=== PATIENT | female | born 1965 | race Caucasian/White ===

== ENCOUNTER 2020-08-04 18:02 | Emergency (ER) | payer OTHER, SELFPAY ==
--- NOTE | ~2020-08-04 | XR_ITS ---
EXAMINATION: XR CHEST CLINICAL INFORMATION: Right-sided pain. COMPARISON: None TECHNIQUE: 2 views of the chest were obtained. FINDINGS: No significant abnormality is noted involving the heart, lungs, mediastinum, bony thorax or soft tissues. XR/XR chest 2V IMPRESSION: Unremarkable chest examination.
[2020-08-04 18:05] VITALS: BP 144/86; PULSE 81; RESP 18; TEMP 2.1; TEMP 35.7; O2SAT 97; BMI 46.5
--- NOTE | 2020-08-04 21:07 | ED.FEMALEGU ---
HPI - Female Genitourinary General Chief complaint: Urogenital-Female Stated complaint: low back pain Time Seen by Provider: 08/04/20 21:07 Source: patient Mode of arrival: ambulatory History of Present Illness HPI Narrative: 54-year-old female who presents with onset of right flank pain that started last night and has been associated with fever but no chills, nausea, vomiting, diarrhea and patient denies urinary pain/burning/frequency. Her surgical past is notable for unidentified ovarian surgery, and cholecystectomy. She states her temp was measured at 101. Related Data Previous Rx's Medication Instructions Recorded ciprofloxacin HCl [Cipro] 500 mg PO Q12H 7 Days #14 tab 08/04/20 Allergies Allergy/AdvReac Type Severity Reaction Status Date / Time No Known Allergies Allergy Unverified 11/29/19 16:18 [No Known Allergies*] Review of Systems Review of Systems: Pertinent positives and negatives as stated in HPI 10 point review of systems is otherwise negative. PMFSH Past Medical History Source: nursing notes reviewed Medical History Depression Social History Social History Advance Directives: No Advance Directives Information Provided: Yes Patient : No Physical Exam Vital Signs: Vital Signs: Last Vital Signs Temp 98.6 F 08/04/20 22:43 Pulse 79 08/04/20 22:43 Resp 20 08/04/20 22:43 BP 156/76 H 08/04/20 22:43 Pulse Ox 98 08/04/20 22:43 Body Mass Index 46.5 VITAL SIGNS: Reviewed. GENERAL: Well developed, well nourished, in no acute distress. HEAD: Normocephalic/atraumatic EYES: PERRLA, EOMI EARS: Ext canals without abnormality NOSE: Nares patent bilateral OROPHARYNX: no oral lesions noted, posterior pharynx clear NECK: Supple, no adenopathy LUNGS: Normal breath sounds. No adventitious sounds or accessory muscle use. SpO2<97> CARDIOVASCULAR: Regular rate and rhythm without noted murmurs ABDOMEN: Soft, mild tenderness to right side of the abdomen without rebound otherwise exam limited by body habitus, non-distended with bowel sounds, no CVA tenderness Course Course Course Narrative: 54-year-old female with history and clinical presentation suggestive of possible renal colic, pyelonephritis, UTI, less likely appendicitis. Low clinical suspicion for pneumonia. Review of all investigations consistent with likely pyelonephritis and patient will be treated with levofloxacin initially here in the ER and then discharged with remaining prescription and recommendations to follow-up with her primary care provider. Today patient is tolerating oral intake. MDM - Female Genitourinary Lab Data Result diagrams: 08/04/20 21:52 08/04/20 21:52 Labs: Lab Results 08/04/20 08/04/20 08/04/20 Range/Units 21:52 21:52 22:35 WBC 5.8 (4.8-10.8) X10*3/uL RBC 4.64 (4.20-5.50) X10*6/uL Hgb 13.2 (12.0-16.0) g/dl Hct 42.2 (37-47) % MCV 90.9 (80-98) fL MCH 28.4 (27.0-33.0) pg MCHC 31.3 (31.0-35.0) g/dl RDW 14.3 (11.0-16.0) % Plt Count 236 (160-400) X10*3/uL MPV 9.1 L (9.4-12.3) fL Immature Gran % (Auto) 0.2 (0.0-0.4) % Neut % (Auto) 62.2 (45-73) % Lymph % (Auto) 29.3 (20-40) % Wilson % (Auto) 5.2 (2-11) % Eos % (Auto) 2.4 (0-4) % Baso % (Auto) 0.7 (0-2) % Lymph # (Auto) 1.7 (1.2-4.9) X10*3/uL Wilson # (Auto) 0.3 (0.1-1.2) X10*3/uL Eos # (Auto) 0.1 (0.0-0.4) X10*3/uL Baso # (Auto) 0.0 (0.0-0.2) X10*3/uL Abs Immat Gran (auto) 0.01 (0.00-0.03) X10*3/uL Absolute Neuts (auto) 3.6 (2.0-8.3) X10*3/uL Absolute Nucleated RBC 0.000 (0.0-0.012) X10*3/uL Nucleated RBC % (auto) 0.0 (0.0-0.2) /100WBC Sodium 138 (135-145) mmol/L Potassium 3.6 (3.3-5.1) mmol/L Chloride 102 (96-108) mmol/L Carbon Dioxide 28 (22-29) mmol/L Anion Gap 12 (12-20) BUN 10 (9-16) mg/dL Creatinine 0.78 (0.5-1.4) mg/dL Estim Creat Clear Calc 110.6 Estimated GFR > 60 Random Glucose 98 (60-115) mg/dL Calcium 8.9 (8.4-10.2) mg/dL Urine Color YELLOW Urine Appearance CLOUDY Urine pH 6.0 (5.0-8.0) Ur Specific [place] 1.025 (1.005-1.025) Urine Protein NEG (NEG-TRACE) MG/DL Urine Glucose (UA) NEG (NEG) MG/DL Urine Ketones NEG (NEG) MG/DL Urine Blood 1+ H (NEG) Urine Nitrite POS H (NEG) Ur Leukocyte Esterase 1+ H (NEG) Urine RBC 0-2 (0) /HPF Urine WBC 15-29 H (0-4) /HPF Ur Squamous Epith Cells 3+ /LPF Urine Bacteria 3+ /LPF Urine Mucus 2+ /LPF Discharge Plan Discharge Clinical Impression: Pyelonephritis Patient Disposition: Home, Self-Care Instructions: Kidney Infection (ED) Additional Instructions: 1. Please resume all home medications as prescribed. 2. Please follow-up with your primary care provider in the next 2-3 days for re-evaluation. 3. Please remain well hydrated especially with water and take [id number] Tylenol/ibuprofen as needed for temperatures greater than 100.4. Return to the ER for any acute worsening of your symptoms. Prescriptions: New ciprofloxacin HCl [Cipro] 500 mg tablet 500 mg PO Q12H 7 Days Qty: 14 RF: 0 Referrals: Physician,None [Primary Care Provider] - 2 days
[2020-08-04 21:57] LABS: MANUAL DIFF FLAG NO
[2020-08-04 21:59] LABS: Basophils Percent Auto 0.7 % (0-2); Eosinophils Absolute Auto 0.1 X10*3/uL (0.0-0.4); Eosinophils Percent Auto 2.4 % (0-4); Hematocrit 42.2 % (37-47); Hemoglobin 13.2 g/dl (12.0-16.0); Imm Gran Abs Auto 0.01 X10*3/uL (0.00-0.03); Imm Gran Pct Auto 0.2 % (0.0-0.4); Lymphocytes Absolute Auto 1.7 X10*3/uL (1.2-4.9); Lymphocytes Percent Auto 29.3 % (20-40); Mean Corpuscular HGB Conc 31.3 g/dl (31.0-35.0); Mean Corpuscular Hemoglobin 28.4 pg (27.0-33.0); Mean Corpuscular Volume 90.9 fL (80-98); Mean Platelet Volume 9.1 fL (9.4-12.3); Monocytes Absolute Auto 0.3 X10*3/uL (0.1-1.2); Monocytes Percent Auto 5.2 % (2-11); Neutrophils Absolute Auto 3.6 X10*3/uL (2.0-8.3); Neutrophils Percent Auto 62.2 % (45-73); Platelet Count 236 X10*3/uL (160-400); Red Blood Count 4.64 X10*6/uL (4.20-5.50); Red Cell Distribution Width 14.3 % (11.0-16.0); White Blood Count 5.8 X10*3/uL (4.8-10.8)
[2020-08-04 22:28] LABS: Anion Gap 12 (12-20); Blood Urea Nitrogen 10 mg/dL (9-16); Calcium 8.9 mg/dL (8.4-10.2); Carbon Dioxide 28 mmol/L (22-29); Chloride 102 mmol/L (96-108); Creatinine Clr Calc Pharmacy 110.6; Estimated Glomerular Filt Rate > 60; Glucose Random 98 mg/dL (60-115); Potassium 3.6 mmol/L (3.3-5.1); Sodium 138 mmol/L (135-145)
--- NOTE | 2020-08-04 22:42 | PC.NURSE ---
Per Timmy WHALEY, pt to receive 975mg of acetaminophen
[2020-08-04 22:43] VITALS: BP 156/76; PULSE 79; RESP 20; TEMP 37; O2SAT 98
[2020-08-04] MEDS: Acetaminophen 325 MG TABLET PO (22:49)
[2020-08-04] MEDS: Acetaminophen 325 MG TABLET 650 MG PO (22:49)
[2020-08-04 22:59] LABS: Glucose Urine UA NEG (NEG); Leukocyte Esterase Urine 1+ (NEG); Nitrite Urine POS (NEG); Specific Gravity - Urine 1.025 (1.005-1.025); UACC Culture Trigger YES; Urine Blood 1+ (NEG); Urine Ketones NEG (NEG); Urine Protein NEG (NEG-TRACE)
[2020-08-04 23:00] LABS: Appearance Urine CLOUDY; Color Urine YELLOW
[2020-08-04 23:07] LABS: Bacteria Urine 3+ /LPF; Mucus Urine 2+ /LPF; RBC Urine 0-2 /HPF (0); Squamous Epithelial Cell Urine 3+ /LPF; UACC CULT YES
[2020-08-04] MEDS: levoFLOXacin 500 MG TABLET PO (23:44)
== END 2020-08-04 23:45 | disposition home or self-care (01) ==
PROVIDERS: Emergency Provider Student in an Organized Health Care Education/Training Program
DX: N12 Tubulo-interstitial nephritis, not specified as acute or chronic (principal); R50.9 Fever, unspecified
CPT/HCPCS: 36415; 71046; 80048; 81001; 85025; 87086; 87088; 87186; 99284

== ENCOUNTER 2021-04-22 11:23 | Emergency (ER) | payer OTHER, SELFPAY ==
--- NOTE | ~2021-04-22 | US_ITS ---
EXAMINATION: US VENOUS ULTRASOUND WITH DOPPLER LOWER EXTREMITY, LEFT CLINICAL INFORMATION: Posterior leg and popliteal pain. Rule out DVT. COMPARISON: None TECHNIQUE: Ultrasound of the deep veins is performed from the hip to the calf with compression sonography and color and pulse Doppler assessment. Spectral analysis with color-flow imaging is performed. FINDINGS: There is normal venous compression and respiratory variation and augmented flow. The visualized common femoral vein, superficial femoral vein, profunda femoral vein, popliteal vein, and the posterior tibial vein shows no evidence of deep venous thrombosis. Peroneal vein is not well visualized. There is no popliteal fossa cyst. US/US venous duplex LE LT IMPRESSION: No DVT demonstrated in the left lower extremity. The left peroneal vein is not well visualized. There is no Alcala's cyst.
[2021-04-22 11:28] VITALS: BP 156/92; PULSE 92; RESP 18; TEMP 36.6; O2SAT 97; BMI 39.9
--- NOTE | 2021-04-22 13:18 | ED.GENADULT ---
HPI - General Adult General Chief complaint: Extremity Injury, Lower Stated complaint: cyst Time Seen by Provider: 04/22/21 12:45 History of Present Illness HPI narrative: Patient complains of left leg pain that has gradually increased over the last 2 weeks, the pain is behind the knee and behind the thigh, she denies any redness any sores any wounds, she denies any injury she has no shortness of breath she denies any calf swelling or calf pain Related Data Previous Rx's Medication Instructions Recorded ciprofloxacin HCl 500 mg tablet 500 mg PO Q12H 7 Days #14 tab 08/04/20 (Cipro) ibuprofen 600 mg tablet 600 mg PO Q6H PRN #14 tab 04/22/21 oxycodone 5 mg tablet 5 mg PO Q6H PRN #14 tab 04/22/21 walker #1 ea 04/22/21 Allergies Allergy/AdvReac Type Severity Reaction Status Date / Time No Known Allergies Allergy Unverified 11/29/19 16:18 [No Known Allergies*] Review of Systems Review of Systems: Positive for left leg pain Negatives are no fever no chills no dizziness no weakness no fainting no feeling faint no headache no neck pain no back pain no radiating back pain no abdominal pain no numbness weakness or tingling no wounds no lacerations no calf pain or swelling Yes all other systems are reviewed and are negative PMFSH Past Medical History Source: nursing notes reviewed Medical History (Updated 04/22/21 @ 17:00 by KATE Gauthier) Depression Varicose vein of leg Social History Social History Advance Directives: No Advance Directives Information Provided: Yes Patient : No Physical Exam Vital Signs: Vital Signs: Last Vital Signs Temp 97.6 F 04/22/21 17:59 Pulse 77 04/22/21 17:59 Resp 16 04/22/21 17:59 BP 156/92 H 04/22/21 11:28 Pulse Ox 98 04/22/21 17:59 BMI result Body Mass Index 39.9 General appearance is no acute distress Head is normocephalic atraumatic Neck is supple Respiratory no distress Chest is clear to auscultation bilateral The back nontender The extremities is full range of motion x4 Left leg exam there is tenderness behind the knee and behind the distal thigh but there is no redness no warmth no swelling no wounds, there are multiple varicose superficial veins but none of them a red Pulses are 2+ and symmetrical dorsalis pedis on both sides, and both are neurovascular intact Neuro no focal motor or sensory deficits and gait and balance are normal Course Course Course Narrative: Left leg ultrasound to rule out DVT was negative Patient is advised to return in 5-7 days if pain persists says she has no primary doctor and she made a repeat ultrasound At this time there is no sign of infection or ischemia or DVT and she is discharged, ambulating easily Discharge Plan Discharge Clinical Impression: Leg pain Patient Disposition: Home, Self-Care Additional Instructions: Ultrasound of her leg was negative with no sign of clot, the physical exam there was no sign of infection, circulation was good Follow with orthopedist and primary care doctor If pain in the back of the leg continues or worsens you should return for a 2nd ultrasound after 5 days to confirm that the pain is not from a blood clot that is not seen on a for study Return any time any worse condition or any concerns Prescriptions: New oxycodone 5 mg tablet 5 mg PO Q6H PRN (Reason: pain) Qty: 14 0RF ibuprofen 600 mg tablet 600 mg PO Q6H PRN (Reason: pain) Qty: 14 0RF (DME) walker Misc See Rx Instructions .Route Qty: 1 0RF Rx Instructions: As directed No Action ciprofloxacin HCl [Cipro] 500 mg tablet 500 mg PO Q12H 7 Days Qty: 14 0RF Referrals: Shabbir Amaya MD [Physician] - 2 days (Left leg pain) Interventions: ED Discharge Assessment Last Done: 04/22/21 18:00 Discharge Date/Time: 04/22/21 18:02
[2021-04-22] MEDS: Acetaminophen 325 MG TABLET 650 MG PO (14:40)
[2021-04-22] MEDS: oxyCODONE HCl Immed Release 5 MG TABLET 10 MG PO (14:40)
[2021-04-22] MEDS: Ketorolac Tromethamine 30 MG/ML VIAL IM (17:24)
[2021-04-22] MEDS: oxyCODONE HCl Immed Release 5 MG TABLET PO (17:24)
[2021-04-22 17:59] VITALS: PULSE 77; RESP 16; TEMP 36.4; O2SAT 98
== END 2021-04-22 18:02 | disposition home or self-care (01) ==
PROVIDERS: Emergency Provider Emergency Medicine
DX: M79.662 Pain in left lower leg (principal)
CPT/HCPCS: 93971; 96372; 99284; J1885

== ENCOUNTER 2021-05-01 00:39 | Emergency (ER) | payer OTHER, SELFPAY ==
[2021-05-01 00:58] VITALS: BP 155/70; PULSE 88; RESP 15; TEMP 36.8; O2SAT 99; BMI 45.7
[2021-05-01 01:38] VITALS: BP 119/44; PULSE 86; RESP 16; TEMP 36.8; O2SAT 100
--- NOTE | 2021-05-01 03:08 | ED.GENADULT ---
HPI - General Adult General Chief complaint: Extremity Injury, Lower Stated complaint: leg pain + dental pain Time Seen by Provider: 05/01/21 01:32 Source: patient Mode of arrival: ambulatory History of Present Illness HPI narrative: 55-year-old female with history and clinical presentation of chronic venous varicosity and re-presented for complaints of left lower extremity pain that affects her ability to walk and now states that her right lower extremity is having similar symptoms. She denies any numbness, tingling in either lower extremity and denies any fevers, chills, shortness of breath, elevated temperature. Patient was seen here last week and had a DVT study that was negative. Related Data Previous Rx's Medication Instructions Recorded ciprofloxacin HCl 500 mg tablet 500 mg PO Q12H 7 Days #14 tab 08/04/20 (Cipro) ibuprofen 600 mg tablet 600 mg PO Q6H PRN #14 tab 04/22/21 oxycodone 5 mg tablet 5 mg PO Q6H PRN #14 tab 04/22/21 walker #1 ea 04/22/21 Allergies Allergy/AdvReac Type Severity Reaction Status Date / Time No Known Allergies Allergy Verified 05/01/21 01:03 [No Known Allergies*] Review of Systems Review of Systems: Pertinent positives and negatives as stated in HPI 10 point review of systems is otherwise negative. [facility] Past Medical History Source: nursing notes reviewed Medical History Depression Varicose vein of leg Social History Social History Advance Directives: No Patient : No Physical Exam ED Vital Signs: Vital Signs - 24 hr 05/01/21 00:58 05/01/21 01:38 Temperature 98.2 F 98.3 F Pulse Rate 88 86 Respiratory Rate 15 16 Blood Pressure 155/70 H 119/44 L Pulse Oximetry 99 100 BMI result Body Mass Index 45.7 VITAL SIGNS: Reviewed. GENERAL: Morbidly obese, in no acute distress. HEAD: Normocephalic/atraumatic EYES: PERRLA, EOMI OROPHARYNX: no oral lesions noted, posterior pharynx clear LUNGS: Normal breath sounds. No adventitious sounds or accessory muscle use. SpO2<99> CARDIOVASCULAR: Regular rate and rhythm without noted murmurs ABDOMEN: Soft, non-tender, non-distended with bowel sounds. MUSCULOSKELETAL: No tenderness, deformities, or effusions noted on gross inspection. EXTREMITIES: No cyanosis, clubbing or edema, significant chronic venous varicosity to bilateral lower extremities, no erythema/induration noted, warm feet, palpable pulses SKIN: Inspection of the skin reveals no rashes NEUROLOGIC: Alert and oriented x 4. Course Course Course Narrative: 55-year-old female with history and clinical presentation consistent with pain associated with bilateral lower extremity venous varicosity without overt evidence of thrombophlebitis and D-dimer is not detectable again demonstrating unlikely VTE. Patient states that because of her job she is unable to wear bilateral lower extremity compression socks, but was strongly encouraged to wear them at all other times to help reduce her pain. She did receive combination analgesics and on re-evaluation states she has had improvement of her pain. She does have an an infected tooth the patient states she has like go for a number of months now. Medical Decision Making Lab Data Labs: Lab Results 05/01/21 Range/Units 04:01 D-Dimer High Sensitivty < 150 NG/ML Discharge Plan Discharge Clinical Impression: Pain due to varicose veins of both lower extremities, Toothache Patient Disposition: Home, Self-Care Instructions: Toothache (ED), Venous Insufficiency (DC) Additional Instructions: 1. Follow-up with a dentist today to get your tooth taken care of. 2. Recommend using compression stockings, knee-high at all other times outside of work. 3. It is important that you establish care with a primary care provider and schedule an appointment for evaluation. Return to the ER for worsening symptoms. Prescriptions: No Action ciprofloxacin HCl [Cipro] 500 mg tablet 500 mg PO Q12H 7 Days Qty: 14 0RF oxycodone 5 mg tablet 5 mg PO Q6H PRN (Reason: pain) Qty: 14 0RF ibuprofen 600 mg tablet 600 mg PO Q6H PRN (Reason: pain) Qty: 14 0RF (DME) [place] Misc See Rx Instructions .Route Qty: 1 0RF Rx Instructions: As directed Stand Alone Forms: Work/School Release
[2021-05-01] MEDS: Acetaminophen 325 MG TABLET 975 MG PO (03:35)
[2021-05-01] MEDS: Ketorolac Tromethamine 15 MG/ML VIAL IM (03:35)
--- NOTE | 2021-05-01 03:39 | PC.NURSE ---
pt medicated as per emar.
[2021-05-01 04:18] LABS: D Dimer High Sensitivity < 150 NG/ML
== END 2021-05-01 04:56 | disposition home or self-care (01) ==
PROVIDERS: Emergency Provider Student in an Organized Health Care Education/Training Program
DX: I83.813 Varicose veins of bilateral lower extremities with pain (principal); K08.89 Other specified disorders of teeth and supporting structures
CPT/HCPCS: 36415; 85379; 96372; 99284; J1885

== ENCOUNTER 2021-12-23 18:21 | Emergency (ER) | payer OTHER, SELFPAY ==
--- NOTE | 2021-12-23 18:23 | ED_ITS ---
HPI - Wound/Laceration General Chief Complaint: Wound/Laceration Stated Complaint: laceration Time Seen by Provider: 12/23/21 18:23 Source: patient and EMS Mode of arrival: EMS Limitations: no limitations History of Present Illness HPI narrative: 56-year-old female presents via EMS for a heavily bleeding varicose vein. Patient scratched her leg left lower leg, noted severe heavy bleeding from a varicose vein site. The bleeding was so significant that blood was all over the bathroom griffin. When EMS arrived they applied a pressure dressing, which she bled through before leaving her home. Patient does not report any physical complaints at this time, and has a history of varicose bleeding. Onset (ago): hour(s) (Within the hour of arrival) Extremity Location: left: lower leg Place: home Patient tetanus UTD: Yes Context: accidental Associated symptoms: none Treatments prior to arrival: bandage Related Data Previous Rx's Medication Instructions Recorded ciprofloxacin HCl 500 mg tablet 500 mg PO Q12H 7 days #14 tabs 08/04/20 (Cipro) ibuprofen 600 mg tablet 600 mg PO Q6H PRN pain #14 tabs 04/22/21 oxycodone 5 mg tablet 5 mg PO Q6H PRN pain #14 tabs 04/22/21 walker #1 ea 04/22/21 Allergies Allergy/AdvReac Type Severity Reaction Status Date / Time No Known Allergies Allergy Verified 05/01/21 01:03 [No Known Allergies*] Review of Systems Review of Systems: Constitutional: No Fever, No Chills ENT/Mouth: No Ear Pain, No Hoarseness, No sore throat Eyes: No Eye Pain, No Swelling, No Redness, No Foreign Body Cardiovascular: No Chest Pain, No SOB Respiratory: No Cough, No Dyspnea Gastrointestinal: No Nausea, No Vomiting, No Diarrhea, No abdominal Pain Genitourinary: No Dysuria, No Hematuria Musculoskeletal: No joint pain, No Myalgias, No Joint Swelling Skin: No Skin lacerations, No rash Neuro: No Weakness, No Numbness, No Paresthesias, No Loss of Consciousness, No Dizziness, No Headache Psych: No Anxiety/Panic, No Depression Heme/Lymph: Varicose vein rupture, no easy bruising, no Lymphadenopathy Endocrine: No Polyuria, No Polydipsia Yes all other systems are reviewed and are negative [facility] Past Medical History Attestation statement: The following information was validated with the patient. Source: old records reviewed Medical History Depression Varicose vein of leg Physical Exam Vital Signs: Vital Signs: Last Vital Signs Temp 98.1 F 12/23/21 18:45 Pulse 90 12/23/21 18:45 Resp 16 12/23/21 18:45 BP 123/51 L 12/23/21 18:45 Pulse Ox 98 12/23/21 18:45 O2 Del Method 12/23/21 18:45 BMI result Body Mass Index 53.2 Appearance: Alert. Oriented X3. No acute distress. Eyes: Pupils equal, round and reactive to light. ENT: Pharynx normal. Neck: Normal inspection. Neck supple. CVS: Normal heart rate and rhythm. Pulses normal. Respiratory: No respiratory distress. Breath sounds normal. Abdomen: Soft and nontender. Skin: Skin warm and dry. Normal skin color. Normal skin turgor. Extremities: No lower extremity edema. Ruptured varicosity to the left medial aspect mid wiggins. Neuro: No motor deficit. No sensory deficit. Cranial nerves 2-12 Course Course Course Narrative: 56-year-old female presents via EMS for bleeding varicosity. EMS was unable to control the bleeding with pressure dressing, she has blood through 2 pressure dressings. Patient was immediately taken into the emergency department for vessel ligation. 4 mL of lidocaine 2% utilized for anesthetize a wiggins, 2 sutures above once again to below varicosity rupture site. Bleeding is well controlled. Patient tolerated procedure well. 19:05 re-evaluation 30 minute status post ligation, hemostasis technique successful. No further bleeding. Pressure dressing applied. Patient will return in 10-14 days to have sutures removed. She does that she must elevate extremity to reduce bleeding. Patient verbalized understanding of and agrees to plan of care discharge home. Replies understanding of signs and symptoms indicating need for emergent intervention. MDM - Wound/Laceration MDM Narrative Medical decision making narrative: Varicose vessel ligation Differential Diagnosis Differential diagnosis: Likely laceration Medical Records Attestation: I reviewed the patient's medical records. Procedures Laceration Laceration 1: Site: lower extremity Side (If applicable): left Size (cm): 0.3 Description: other (Ruptured varicosity) Depth: simple, single layer Local Anesthetic: lidocaine 2% Amount of anesthesia used (mL): 4 Skin layer closed with: nylon Size (cm): 4-0 Number of sutures: 3 Technique: simple, interrupted Discharge Plan Discharge Clinical Impression: Ruptured varicosity, H/O varicose vein ligation, Laceration of left leg Patient Disposition: Home, Self-Care Instructions: Laceration (ED) Additional Instructions: You were evaluated for bleeding varicose vein. I applied 3 sutures. Please return in 10-14 days to have sutures removed. If bleeding continues please seek medical attention immediately. Keep extremity elevated to help reduce bleeding. Thank you for choosing this emergency department for evaluation. Please follow-up with primary care physician as needed. Return to the emergency department for any new, concerning, or worsening symptoms. Prescriptions: No Action ciprofloxacin HCl [Cipro] 500 mg tablet 500 mg PO Q12H 7 Days Qty: 14 0RF oxycodone 5 mg tablet 5 mg PO Q6H PRN (Reason: pain) Qty: 14 0RF ibuprofen 600 mg tablet 600 mg PO Q6H PRN (Reason: pain) Qty: 14 0RF (DME) walker Misc See Rx Instructions .Route Qty: 1 0RF Rx Instructions: As directed Stand Alone Forms: Work/School Release
[2021-12-23 18:45] VITALS: BP 123/51; BP 132/98; PULSE 89; PULSE 90; RESP 16; TEMP 36.7; O2SAT 97; O2SAT 98; BMI 53.2
[2021-12-23] MEDS: Lidocaine HCl 2% PF/Epi 1:200 20 ML VIAL INFILTRATI (18:45)
== END 2021-12-23 19:24 | disposition home or self-care (01) ==
PROVIDERS: Emergency Provider Emergency Medicine; PCP Internal Medicine
DX: S81.812A Laceration without foreign body, left lower leg, initial encounter (principal); I83.92 Asymptomatic varicose veins of left lower extremity; Y28.9XXA Contact with unspecified sharp object, undetermined intent, initial encounter; Y93.9 Activity, unspecified; Y92.9 Unspecified place or not applicable; Y99.9 Unspecified external cause status; Z79.899 Other long term (current) drug therapy
CPT/HCPCS: 12001; 99282; 99284

== ENCOUNTER 2021-12-25 18:47 | Emergency (ER) | payer OTHER, SELFPAY ==
--- NOTE | ~2021-12-25 | US_ITS ---
EXAMINATION: US PELVIS CLINICAL INFORMATION: Suprapubic pain, question cyst COMPARISON: None TECHNIQUE: Ultrasound of the pelvis is performed using both transabdominal and transvaginal transducers along with Doppler. Transvaginal imaging is performed due to inadequate visualization transabdominally. FINDINGS: Uterus: The uterus is anteverted and measures 6.0 x 2.9 x 3.3 cm. Endometrial stripe measures 0.4 cm in thickness and appears heterogeneous. Small amount of fluid noted in the cervix. Adnexa: Both ovaries are visualized and appear unremarkable. The right ovary measures 1.6 x 1.2 x 1.2, and the left ovary measures 1.7 x 1.0 x 1.5 cm. Trace free fluid is noted. US/US pelvic and transvaginal IMPRESSION: 1. Normal appearance of the ovaries without evidence of cyst. 2. Trace nonspecific pelvic free fluid. 3. Endometrial stripe within normal thickness for postmenopausal state, though somewhat heterogeneous of uncertain significance. 4. Trace fluid in the cervix.
[2021-12-25 19:46] VITALS: BP 144/90; PULSE 88; RESP 21; TEMP 36.7; O2SAT 98; BMI 57.2
[2021-12-25] MEDS: Ibuprofen 600 MG TABLET PO (20:30)
--- NOTE | 2021-12-26 01:12 | PC.NURSE ---
pt ambulatory to and from bathroom no issues
--- NOTE | 2021-12-26 01:41 | ED_ITS ---
HPI - General Adult General Chief complaint: General Medical Stated complaint: abd pain/back of knee pain/needs pressure on leg Time Seen by Provider: 12/26/21 01:25 Source: patient Mode of arrival: ambulatory Limitations: no limitations History of Present Illness HPI narrative: Patient is 56 years old been coughing for last 4- 5 days and for last 2 days noticed pain in the lower abdomen weak area history of ovarian cyst patient works with mentally retarded people. No fever no chills does have dry cough also has a history of seasonal asthma not shortness of breath saturating 98% on room air when arrived Related Data Previous Rx's Medication Instructions Recorded ciprofloxacin HCl 500 mg tablet 500 mg PO Q12H 7 days #14 tabs 08/04/20 (Cipro) ibuprofen 600 mg tablet 600 mg PO Q6H PRN pain #14 tabs 04/22/21 oxycodone 5 mg tablet 5 mg PO Q6H PRN pain #14 tabs 04/22/21 walker #1 ea 04/22/21 codeine 10 mg-guaifenesin 100 mg/5 10 ml PO Q6H PRN cough #237 mL 12/26/21 mL oral liquid dexamethasone 6 mg tablet 6 mg PO DAILY #6 tabs 12/26/21 Allergies Allergy/AdvReac Type Severity Reaction Status Date / Time Seasonal Allergies Allergy Mild Sneezing Verified 12/25/21 19:58 Review of Systems Review of Systems: Yes all other systems are reviewed and are negative [facility] Past Medical History Medical History Depression Varicose vein of leg Social History Social History Advance Directives: No Advance Directives Information Provided: Yes Patient : No Physical Exam ED Vital Signs: Vital Signs - 24 hr 12/25/21 19:46 12/26/21 04:22 Temperature 98.1 F 97.8 F Pulse Rate 88 82 Respiratory Rate 21 H 18 Blood Pressure 144/90 H 129/56 L Pulse Oximetry 98 98 Oxygen Delivery Method Room Air Room Air BMI result Body Mass Index 57.2 Appearance: Alert. Oriented X3. No acute distress. Eyes: PERRLA, No Nystagmus ENT: Pharynx normal. Oral Mucosa moist Neck: Normal inspection. Neck supple. CVS: Normal heart rate and rhythm. Pulses normal. Respiratory: No respiratory distress. Equal air entry bilateral, no wheezing/rales/rhonchi Abdomen: Soft, mild suprapubic tenderness. Bowel sounds are present, no mass palpable, no CVA tenderness Skin: Skin warm and dry. Normal skin color. Normal skin turgor. Extremities: No lower extremity edema. No calf tenderness Neuro: Oriented X 3. No motor deficit. No sensory deficit.No cerebellar signs , cranial nerves II-XII intact Medical Decision Making MDM Narrative Medical decision making narrative: Ultrasound of pelvis negative COVID-19 was positive likely patient has lower abdominal muscular pain after coughing [place] patient home Lab Data Labs: Lab Results 12/26/21 12/26/21 12/26/21 Range/Units 03:02 03:02 03:21 Urine Color Yellow Urine Appearance Hazy Urine pH 6.0 (5.0-9.0) Ur Specific [place] >= 1.030 H (1.005-1.025) Urine Protein Negative (Neg-Trace) mg/dL Urine Glucose (UA) Negative (Negative) mg/dL Urine Ketones Negative (Negative) mg/dL Urine Blood Moderate (2+) H (Negative) Urine Nitrite Negative (Negative) Ur Leukocyte Esterase Negative (Negative) Urine RBC 3-5 H (0-2) /HPF Urine WBC 0-5 (0-5) /HPF Ur Squamous Epith Cells 3-5 (0-2) /HPF Urine Bacteria 2+ (None Seen) Hyaline Casts 0-2 (0-2) /LPF Urine Test NEGATIVE (NEGATIVE) COVID-19 (JANI) Positive A (Negative) COVID-19 Clin Com See Note Discharge Plan Discharge Clinical Impression: COVID-19 Patient Disposition: Home, Self-Care Instructions: COVID-19 (Coronavirus Disease 2019) (ED) Additional Instructions: Continue to use your inhaler every 4 hours as needed Decadron daily as advised for 6 days Report to the ER if increased shortness of breath Self-isolation as advised Prescriptions: New codeine-guaifenesin 10-100 mg/5 mL liquid 10 ml PO Q6H PRN (Reason: cough) Qty: 237 0RF dexamethasone 6 mg tablet 6 mg PO DAILY Qty: 6 0RF No Action ciprofloxacin HCl [Cipro] 500 mg tablet 500 mg PO Q12H 7 Days Qty: 14 0RF oxycodone 5 mg tablet 5 mg PO Q6H PRN (Reason: pain) Qty: 14 0RF ibuprofen 600 mg tablet 600 mg PO Q6H PRN (Reason: pain) Qty: 14 0RF (DME) walker Misc See Rx Instructions .Route Qty: 1 0RF Rx Instructions: As directed Stand Alone Forms: Work/School Release Interventions: ED Discharge Assessment Last Done: 12/26/21 04:55 Discharge Date/Time: 12/26/21 04:55
[2021-12-26 03:10] LABS: Appearance Urine Hazy; Color Urine Yellow; Glucose Urine UA Negative (Negative); Leukocyte Esterase Urine Negative (Negative); Nitrite Urine Negative (Negative); Specific Gravity - Urine >= 1.030 (1.005-1.025); UMIC TRIGGER UACC YES; Urine Blood Moderate (2+) (Negative); Urine Ketones Negative (Negative); Urine Protein Negative (Neg-Trace)
[2021-12-26 03:13] LABS: UPreg QC Valid YES; Urine Pregnancy NEGATIVE (NEGATIVE)
[2021-12-26 03:30] LABS: Bacteria Urine 2+ (None Seen); Hyaline Casts Urine 0-2 /LPF (0-2); WBC Urine 0-5 /HPF (0-5)
[2021-12-26 03:42] LABS: COVID-19 Test Positive (Negative)
[2021-12-26 04:22] VITALS: BP 129/56; PULSE 82; RESP 18; TEMP 36.6; O2SAT 98
--- NOTE | 2021-12-26 04:23 | PC.NURSE ---
decadron not available in pyxis house sup called and requested medication.
[2021-12-26] MEDS: dexAMETHasone 2 MG TABLET 10 MG PO (04:49)
== END 2021-12-26 04:55 | disposition home or self-care (01) ==
PROVIDERS: Emergency Provider Internal Medicine
DX: U07.1 COVID-19 (principal); R10.30 Lower abdominal pain, unspecified
CPT/HCPCS: 76830; 76856; 81001; 81025; 87635; 99283; 99284; J8540

== ENCOUNTER 2022-01-11 23:33 | Emergency (ER) | payer OTHER, SELFPAY ==
--- NOTE | ~2022-01-11 | XR_ITS ---
EXAMINATION: XR CHEST CLINICAL INFORMATION: Shortness of breath COMPARISON: 08/04/2020 TECHNIQUE: Frontal view of the chest was obtained. FINDINGS: Lung volumes are symmetric. No focal consolidation is seen. Azygos lobe is noted at the right apex. No evidence of pneumothorax, pleural effusion, or pulmonary edema. The cardiomediastinal contour is unremarkable. No acute osseous findings are seen. XR/XR chest 1V IMPRESSION: No acute cardiopulmonary findings.
[2022-01-11 23:58] VITALS: BP 159/82; PULSE 95; RESP 20; TEMP 36.4; O2SAT 97; BMI 53.2
--- NOTE | 2022-01-12 01:35 | ED.GENADULT ---
HPI - General Adult General Chief complaint: General Medical <KATE Mares - Last Filed: 01/12/22 03:01> Stated complaint: sutures needed to take out, difficulty breathing <KATE Mares Last Filed: 01/12/22 03:01> Time Seen by Provider: 01/12/22 00:06 <KATE Mares Last Filed: 01/12/22 03:01> Source: patient <KATE Mares Last Filed: 01/12/22 03:01> Mode of arrival: ambulatory <KATE Mares Last Filed: 01/12/22 03:01> Limitations: no limitations <KATE Mares Last Filed: 01/12/22 03:01> History of Present Illness HPI narrative: 56-year-old with history of COVID recently, varicose vein of leg, depression presents to the emergency department with worsening sore throat, head congestion, shortness of breath x2 days. Patient reports she was diagnosed for the 3rd time with COVID 2 weeks ago. Patient reports she feels worsening shortness of breath on exertion. Additionally patient states her throat hurts, and that it is difficult for her to swallow. Patient reports subjective fevers, body aches, worsening edema of her lower extremities. Patient not on lasix. Additionally patient states that she had sutures placed on December 23 and was supposed to get them removed January 02 however has been unable to come in due to work. Patient is not on blood thinners. Patient denies history of DVT/PE. Patient denies recent travel or tobacco use. No hx of cancer. Denies dizziness, chest pain, nausea, vomiting, diarrhea, constipation, weakness. <KATE Mares Last Filed: 01/12/22 03:01> Related Data Home medications: Previous Rx's Medication Instructions Recorded ciprofloxacin HCl 500 mg tablet 500 mg PO Q12H 7 days #14 tabs 08/04/20 (Cipro) ibuprofen 600 mg tablet 600 mg PO Q6H PRN pain #14 tabs 04/22/21 oxycodone 5 mg tablet 5 mg PO Q6H PRN pain #14 tabs 04/22/21 walker #1 ea 04/22/21 codeine 10 mg-guaifenesin 100 mg/5 10 ml PO Q6H PRN cough #237 mL 12/26/21 mL oral liquid dexamethasone 6 mg tablet 6 mg PO DAILY #6 tabs 12/26/21 cephalexin 500 mg tablet 500 mg PO Q6H 10 days #40 tabs 01/12/22 doxycycline hyclate 100 mg capsule 100 mg PO BID 10 days #20 caps 01/12/22 prednisone 20 mg tablet 40 mg PO DAILY 5 days #10 tabs 01/12/22 <KATE Mares Last Filed: 01/12/22 03:01> Allergies/adverse reactions: Allergies Allergy/AdvReac Type Severity Reaction Status Date / Time Seasonal Allergies Allergy Mild Sneezing Verified 01/12/22 00:03 <KATE Mares Last Filed: 01/12/22 03:01> Review of Systems Review of Systems: Constitutional : No Weight loss, + Fever, No Chills, No Fatigue, No Malaise ENT/Mouth : + sore throat, + nasal congestion, No Rhinorrhea Eyes: No Eye Pain, No Swelling, No Redness Cardiovascular : No Chest Pain, + SOB, + Dyspnea on Exertion, No Orthopnea, + Edema, No Palpitations Respiratory : No Cough, No Sputum, No Wheezing Gastrointestinal : No Nausea, No Vomiting, No Diarrhea, No Constipation, No abdominal Pain, No Hematochezia, No Melena Genitourinary : No Dysuria, No Urinary Frequency, No Hematuria, Musculoskeletal : No joint pain, No Myalgias, No Joint Swelling Skin : No Skin Lesions, No rash Neuro : No Weakness, No Numbness, No Dizziness, No Headache Psych : No Anxiety/Panic, No Depression All other systems reviewed and are negative <KATE Mares Last Filed: 01/12/22 03:01> Yes all other systems are reviewed and are negative <KATE Mares Last Filed: 01/12/22 03:01> [facility] Past Medical History Attestation statement: The following information was validated with the patient. <KATE Mares Last Filed: 01/12/22 03:01> Source: old records reviewed <KATE Mares Last Filed: 01/12/22 03:01> Medical History: Medical History Depression Varicose vein of leg <KATE Mares - Last Filed: 01/12/22 03:01> Social History Social History: Social History Advance Directives: No Advance Directives Information Provided: Yes <KATE Mares - Last Filed: 01/12/22 03:01> Physical Exam ED Vital Signs: Vital Signs - 24 hr 01/11/22 23:58 01/12/22 03:00 01/12/22 03:49 Temperature 97.5 F Pulse Rate 95 83 86 Respiratory Rate 20 18 22 H Blood Pressure 159/82 H 136/76 Pulse Oximetry 97 Oxygen Delivery Method Room Air Room Air Oxygen Flow Rate 98 BMI result Body Mass Index 53.2 vss <KATE Mares - Last Filed: 01/12/22 03:01> Vital Signs - 24 hr 01/11/22 23:58 01/12/22 03:00 01/12/22 03:49 Temperature 97.5 F Pulse Rate 95 83 86 Respiratory Rate 20 18 22 H Blood Pressure 159/82 H 136/76 Pulse Oximetry 97 Oxygen Delivery Method Room Air Room Air Oxygen Flow Rate 98 BMI result Body Mass Index 53.2 <Jennifer Mckeon MD - Last Filed: 01/12/22 04:25> Appearance: Alert.? Oriented X3.? No acute distress.? Head: Normocephalic, atraumatic, no step-offs or deformities Eyes: Pupils equal, round and reactive to light.? ENT: Pharynx normal.? Neck: Normal inspection.? Neck supple.? CVS: Normal heart rate and rhythm.? Pulses normal.? Respiratory: No respiratory distress.? Breath sounds diminished bilaterally with faint expiratory wheezing.? Abdomen: Soft and nontender.? Skin: Skin warm and dry.? Normal skin color.? Normal skin turgor.? Extremities: + bilateral lower extremity edema 3+ non pititng from knee down..? No calf ttp, negative aracelis b/l. 3 Sutures to left anterior wiggins w/ overlying cellulitis and warmth. 5/5 strength to bilateral upper and lower extremities Back: No midline tenderness, no C-spine tenderness, full range of motion, no CVA tenderness bilaterally Neuro: Oriented X 3.? No motor deficit.? No sensory deficit. CN 2-12 intact <KATE Mares - Last Filed: 01/12/22 03:01> Course Reevaluation(s) Reevaluation #1: Patient's CBC appears to be around patient's baseline. Chemistry with no acute electrolyte abnormalities requiring intervention. Patient's D-dimer is negative unlikely that this is PE. Patient COVID negative. Chest x-ray with no acute findings. No signs of pneumonia. At this time BNP, troponin and EKG pending. Patient is still short of breath ordered a DuoNeb. Three sutures were removed from the left anterior wiggins without complications, explained to patient she will be discharged home on antibiotics for cellulitis of the left lower extremity. <KATE Mares - Last Filed: 01/12/22 03:01> Time: 02:48 <KATE Mares - Last Filed: 01/12/22 03:01> Reevaluation #2: Sign out to Dr. Mckeon. Patient currently receiving DuoNeb. Pending troponin, BNP, re-evaluation. I suspect patient can be discharged home of all these are negative. <KATE Mares - Last Filed: 01/12/22 03:01> Time: 03:00 <KATE Mares - Last Filed: 01/12/22 03:01> Reevaluation #3: EKG, troponin, BMP within normal limits. Patient states that she feels much better, breathing back to normal, oxygen saturation 90% on room air <Jennifer Mckeon MD - Last Filed: 01/12/22 04:25> Medical Decision Making [facility] Narrative Medical decision making narrative: [id number] 56-year-old female presents to the emergency department with worsening sore throat, head congestion, shortness of breath x2 days. Patient was diagnosed with COVID for the 3rd time 2 weeks ago. Additionally patient presents for suture removal. Physical exam revealed normal rate and rhythm, breath sounds diminished bilaterally with faint expiratory wheezing Abdomen soft nontender nondistended. 3+ non pitting edema to lower extremities bilaterally. Negative Aracelis bilaterally. Patient noted to have [address] to the left anterior wiggins with overlying erythema, warmth. Pharynx within normal limits. No palpable lymphadenopathy. Likely viral infection. Will rule out PE and pneumonia although unlikely. Patient without chest pain I do not suspect ACS on this patient. Will also rule out fluid overload. No signs of peritonsillar abcess or epiglotitis. Plan at this time is to obtain basic labs, chest x-ray. Will rule out DVT/PE <KATE Mares - Last Filed: 01/12/22 03:01> Medical Records Medical records reviewed: Yes I reviewed the patient's medical records. <KATE Mares - Last Filed: 01/12/22 03:01> Lab Data Result diagrams: : 01/12/22 01:34 01/12/22 01:34 <KATE Mares - Last Filed: 01/12/22 03:01> Labs: Lab Results 01/12/22 01/12/22 01/12/22 Range/Units 01:34 01:34 01:34 WBC 6.5 (4.8-10.8) X10*3/uL RBC 3.92 L (4.20-5.50) X10*6/uL Hgb 11.1 L (12.0-16.0) g/dl Hct 35.3 L (37.0-47.0) % MCV 90.1 (80.0-98.0) fL MCH 28.3 (27.0-33.0) pg MCHC 31.4 (31.0-35.0) g/dl RDW 16.2 H (11.0-16.0) % Plt Count 206 (160-400) X10*3/uL MPV 9.4 (9.4-12.3) fL Immature Gran % (Auto) 0.3 (0.0-0.4) % Neut % (Auto) 63.9 (45-73) % Lymph % (Auto) 23.4 (20-40) % [place] % (Auto) 9.1 (2-11) % Eos % (Auto) 2.5 (0-4) % Baso % (Auto) 0.8 (0-2) % Lymph # (Auto) 1.5 (1.2-4.9) X10*3/uL [place] # (Auto) 0.6 (0.1-1.2) X10*3/uL Eos # (Auto) 0.2 (0.0-0.4) X10*3/uL Baso # (Auto) 0.1 (0.0-0.2) X10*3/uL Abs Immat Gran (auto) 0.02 (0.00-0.03) X10*3/uL Absolute Neuts (auto) 4.2 (2.0-8.3) x10*3/uL Absolute Nucleated RBC 0.000 (0.0-0.012) X10*3/uL Nucleated RBC % (auto) 0.0 (0.0-0.2) /100WBC D-Dimer High Sensitivty 156 NG/ML Sodium 142 (135-145) mmol/L Potassium 3.8 (3.3-5.1) mmol/L Chloride 103 (96-108) mmol/L Carbon Dioxide 26 (22-29) mmol/L Anion Gap 17 (12-20) BUN 18 H (9-16) mg/dL Creatinine 0.79 (0.5-1.4) mg/dL Estim Creat Clear Calc 115.8 Estimated GFR > 60 Random Glucose 98 (60-115) mg/dL Calcium 8.8 (8.4-10.2) mg/dL Magnesium 2.0 (1.6-2.6) mg/dL Total Bilirubin < 0.2 (0.0-1.0) mg/dL AST 24 (5-31) U/L ALT 34 H (0-31) U/L Alkaline Phosphatase 95 (39-117) U/L Troponin I High Sens (<3.5-17.0) ng/L B-Natriuretic Peptide (<100) pg/mL Total Protein 7.1 (6.5-8.0) g/dL Albumin 3.6 (3.5-5.0) g/dL COVID-19 (JANI) (Negative) COVID-19 Clin Com S. pyogenes GrpA ESTELA (Negative) 01/12/22 01/12/22 01/12/22 Range/Units 01:34 01:34 02:45 WBC (4.8-10.8) X10*3/uL RBC (4.20-5.50) X10*6/uL Hgb (12.0-16.0) g/dl Hct (37.0-47.0) % MCV (80.0-98.0) fL MCH (27.0-33.0) pg MCHC (31.0-35.0) g/dl RDW (11.0-16.0) % Plt Count (160-400) X10*3/uL MPV (9.4-12.3) fL Immature Gran % (Auto) (0.0-0.4) % Neut % (Auto) (45-73) % Lymph % (Auto) (20-40) % [place] % (Auto) (2-11) % Eos % (Auto) (0-4) % Baso % (Auto) (0-2) % Lymph # (Auto) (1.2-4.9) X10*3/uL [place] # (Auto) (0.1-1.2) X10*3/uL Eos # (Auto) (0.0-0.4) X10*3/uL Baso # (Auto) (0.0-0.2) X10*3/uL Abs Immat Gran (auto) (0.00-0.03) X10*3/uL Absolute Neuts (auto) (2.0-8.3) x10*3/uL Absolute Nucleated RBC (0.0-0.012) X10*3/uL Nucleated RBC % (auto) (0.0-0.2) /100WBC D-Dimer High Sensitivty NG/ML Sodium (135-145) mmol/L Potassium (3.3-5.1) mmol/L Chloride (96-108) mmol/L Carbon Dioxide (22-29) mmol/L Anion Gap (12-20) BUN (9-16) mg/dL Creatinine (0.5-1.4) mg/dL Estim Creat Clear Calc Estimated GFR Random Glucose (60-115) mg/dL Calcium (8.4-10.2) mg/dL Magnesium (1.6-2.6) mg/dL Total Bilirubin (0.0-1.0) mg/dL AST (5-31) U/L ALT (0-31) U/L Alkaline Phosphatase (39-117) U/L Troponin I High Sens 4.3 (<3.5-17.0) ng/L B-Natriuretic Peptide 14 (<100) pg/mL Total Protein (6.5-8.0) g/dL Albumin (3.5-5.0) g/dL COVID-19 (JANI) Negative (Negative) COVID-19 Clin Com See Note S. pyogenes GrpA ESTELA Negative (Negative) <KATE Mares - Last Filed: 01/12/22 03:01> Lab Results 01/12/22 01/12/22 01/12/22 Range/Units 01:34 01:34 01:34 WBC 6.5 (4.8-10.8) X10*3/uL RBC 3.92 L (4.20-5.50) X10*6/uL Hgb 11.1 L (12.0-16.0) g/dl Hct 35.3 L (37.0-47.0) % MCV 90.1 (80.0-98.0) fL MCH 28.3 (27.0-33.0) pg MCHC 31.4 (31.0-35.0) g/dl RDW 16.2 H (11.0-16.0) % Plt Count 206 (160-400) X10*3/uL MPV 9.4 (9.4-12.3) fL Immature Gran % (Auto) 0.3 (0.0-0.4) % Neut % (Auto) 63.9 (45-73) % Lymph % (Auto) 23.4 (20-40) % [place] % (Auto) 9.1 (2-11) % Eos % (Auto) 2.5 (0-4) % Baso % (Auto) 0.8 (0-2) % Lymph # (Auto) 1.5 (1.2-4.9) X10*3/uL [place] # (Auto) 0.6 (0.1-1.2) X10*3/uL Eos # (Auto) 0.2 (0.0-0.4) X10*3/uL Baso # (Auto) 0.1 (0.0-0.2) X10*3/uL Abs Immat Gran (auto) 0.02 (0.00-0.03) X10*3/uL Absolute Neuts (auto) 4.2 (2.0-8.3) x10*3/uL Absolute Nucleated RBC 0.000 (0.0-0.012) X10*3/uL Nucleated RBC % (auto) 0.0 (0.0-0.2) /100WBC D-Dimer High Sensitivty 156 NG/ML Sodium 142 (135-145) mmol/L Potassium 3.8 (3.3-5.1) mmol/L Chloride 103 (96-108) mmol/L Carbon Dioxide 26 (22-29) mmol/L Anion Gap 17 (12-20) BUN 18 H (9-16) mg/dL Creatinine 0.79 (0.5-1.4) mg/dL Estim Creat Clear Calc 115.8 Estimated GFR > 60 Random Glucose 98 (60-115) mg/dL Calcium 8.8 (8.4-10.2) mg/dL Magnesium 2.0 (1.6-2.6) mg/dL Total Bilirubin < 0.2 (0.0-1.0) mg/dL AST 24 (5-31) U/L ALT 34 H (0-31) U/L Alkaline Phosphatase 95 (39-117) U/L Troponin I High Sens (<3.5-17.0) ng/L B-Natriuretic Peptide (<100) pg/mL Total Protein 7.1 (6.5-8.0) g/dL Albumin 3.6 (3.5-5.0) g/dL COVID-19 (JANI) (Negative) COVID-19 Clin Com S. pyogenes GrpA ESTELA (Negative) 01/12/22 01/12/22 01/12/22 Range/Units 01:34 01:34 02:45 WBC (4.8-10.8) X10*3/uL RBC (4.20-5.50) X10*6/uL Hgb (12.0-16.0) g/dl Hct (37.0-47.0) % MCV (80.0-98.0) fL MCH (27.0-33.0) pg MCHC (31.0-35.0) g/dl RDW (11.0-16.0) % Plt Count (160-400) X10*3/uL MPV (9.4-12.3) fL Immature Gran % (Auto) (0.0-0.4) % Neut % (Auto) (45-73) % Lymph % (Auto) (20-40) % [place] % (Auto) (2-11) % Eos % (Auto) (0-4) % Baso % (Auto) (0-2) % Lymph # (Auto) (1.2-4.9) X10*3/uL [place] # (Auto) (0.1-1.2) X10*3/uL Eos # (Auto) (0.0-0.4) X10*3/uL Baso # (Auto) (0.0-0.2) X10*3/uL Abs Immat Gran (auto) (0.00-0.03) X10*3/uL Absolute Neuts (auto) (2.0-8.3) x10*3/uL Absolute Nucleated RBC (0.0-0.012) X10*3/uL Nucleated RBC % (auto) (0.0-0.2) /100WBC D-Dimer High Sensitivty NG/ML Sodium (135-145) mmol/L Potassium (3.3-5.1) mmol/L Chloride (96-108) mmol/L Carbon Dioxide (22-29) mmol/L Anion Gap (12-20) BUN (9-16) mg/dL Creatinine (0.5-1.4) mg/dL Estim Creat Clear Calc Estimated GFR Random Glucose (60-115) mg/dL Calcium (8.4-10.2) mg/dL Magnesium (1.6-2.6) mg/dL Total Bilirubin (0.0-1.0) mg/dL AST (5-31) U/L ALT (0-31) U/L Alkaline Phosphatase (39-117) U/L Troponin I High Sens 4.3 (<3.5-17.0) ng/L B-Natriuretic Peptide 14 (<100) pg/mL Total Protein (6.5-8.0) g/dL Albumin (3.5-5.0) g/dL COVID-19 (JANI) Negative (Negative) COVID-19 Clin Com See Note S. pyogenes GrpA ESTELA Negative (Negative) <Jennifer Mckeon MD - Last Filed: 01/12/22 04:25> Critical Care Time Critical Care Time Critical Care Time: No <KATE Mares - Last Filed: 01/12/22 03:01> Discharge Plan Discharge Clinical Impression: Visit for suture removal, Shortness of breath, Cellulitis, Viral infection, Sore throat <KATE Mares - Last Filed: 01/12/22 03:01> Patient Disposition: Home, Self-Care <KATE Mares Last Filed: 01/12/22 03:01> Instructions: Cellulitis (ED), Shortness of Breath (ED), Stitches Removal (ED) <KATE Mares - Last Filed: 01/12/22 03:01> Additional Instructions: Take your medications as prescribed. If you were prescribed antibiotics today, it is important that you take your medication to their entirety, do not skip any doses, do not finish them early. Follow-up with your primary care provider this week. Return to the emergency department with new or worsening symptoms. Such as fevers, chills, chest pain, shortness of breath, nausea, vomiting, dizziness, headache, vision changes, lethargy In case of emergency call 911 Your noted to have a overlying skin infection of the left lower extremity, I will order antibiotics your pharmacy. Chest xray was normal. COVID negative today <KATE Mares - Last Filed: 01/12/22 03:01> Prescriptions: New doxycycline hyclate 100 mg capsule 100 mg PO BID 10 Days Qty: 20 0RF cephalexin 500 mg tablet 500 mg PO Q6H 10 Days Qty: 40 0RF prednisone 20 mg tablet 40 mg PO DAILY 5 Days Qty: 10 0RF No Action ciprofloxacin HCl [Cipro] 500 mg tablet 500 mg PO Q12H 7 Days Qty: 14 0RF codeine-guaifenesin 10-100 mg/5 mL liquid 10 ml PO Q6H PRN (Reason: cough) Qty: 237 0RF dexamethasone 6 mg tablet 6 mg PO DAILY Qty: 6 0RF oxycodone 5 mg tablet 5 mg PO Q6H PRN (Reason: pain) Qty: 14 0RF ibuprofen 600 mg tablet 600 mg PO Q6H PRN (Reason: pain) Qty: 14 0RF (DME) [place] Misc See Rx Instructions .Route Qty: 1 0RF Rx Instructions: As directed <KATE Mares - Last Filed: 01/12/22 03:01> Referrals: Physician,None [Primary Care Provider] - 2 days <KATE Mares - Last Filed: 01/12/22 03:01>
[2022-01-12 01:38] LABS: MANUAL DIFF FLAG NO
[2022-01-12 01:45] LABS: Basophils Absolute Auto 0.1 X10*3/uL (0.0-0.2); Basophils Percent Auto 0.8 % (0-2); Eosinophils Absolute Auto 0.2 X10*3/uL (0.0-0.4); Eosinophils Percent Auto 2.5 % (0-4); Hematocrit 35.3 % (37.0-47.0); Hemoglobin 11.1 g/dl (12.0-16.0); Imm Gran Abs Auto 0.02 X10*3/uL (0.00-0.03); Imm Gran Pct Auto 0.3 % (0.0-0.4); Lymphocytes Absolute Auto 1.5 X10*3/uL (1.2-4.9); Lymphocytes Percent Auto 23.4 % (20-40); Mean Corpuscular HGB Conc 31.4 g/dl (31.0-35.0); Mean Corpuscular Hemoglobin 28.3 pg (27.0-33.0); Mean Corpuscular Volume 90.1 fL (80.0-98.0); Mean Platelet Volume 9.4 fL (9.4-12.3); Monocytes Absolute Auto 0.6 X10*3/uL (0.1-1.2); Monocytes Percent Auto 9.1 % (2-11); Neutrophils Absolute Auto 4.2 x10*3/uL (2.0-8.3); Neutrophils Percent Auto 63.9 % (45-73); Platelet Count 206 X10*3/uL (160-400); Red Blood Count 3.92 X10*6/uL (4.20-5.50); Red Cell Distribution Width 16.2 % (11.0-16.0); White Blood Count 6.5 X10*3/uL (4.8-10.8)
[2022-01-12 01:52] LABS: D Dimer High Sensitivity 156 NG/ML
[2022-01-12 01:58] LABS: COVID-19 Test Negative (Negative)
[2022-01-12 02:14] LABS: Alanine Aminotransferase 34 U/L (0-31); Albumin Level 3.6 g/dL (3.5-5.0); Alkaline Phosphatase 95 U/L (39-117); Anion Gap 17 (12-20); Aspartate Amino Transferase 24 U/L (5-31); Bilirubin Total < 0.2 mg/dL (0.0-1.0); Blood Urea Nitrogen 18 mg/dL (9-16); Calcium 8.8 mg/dL (8.4-10.2); Carbon Dioxide 26 mmol/L (22-29); Chloride 103 mmol/L (96-108); Creatinine Clr Calc Pharmacy 115.8; Estimated Glomerular Filt Rate > 60; Glucose Random 98 mg/dL (60-115); Potassium 3.8 mmol/L (3.3-5.1); Sodium 142 mmol/L (135-145); Total Protein 7.1 g/dL (6.5-8.0)
--- NOTE | 2022-01-12 02:46 | ECG_ITS ---
Test Reason : cp Blood Pressure : / mmHG Vent. Rate : 088 BPM Atrial Rate : 088 BPM P-R Int : 110 ms QRS Dur : 102 ms QT Int : 392 ms P-R-T Axes : 008 005 048 degrees QTc Int : 474 ms Sinus rhythm with short NM Incomplete right bundle branch block Abnormal ECG When compared with ECG of 15-NOV-2018 20:48, No significant change was found Referred By: Veronica Chow Electronically Signed By:JOHN GRUBBS MD
[2022-01-12] MEDS: Albuterol/Iprat 2.5/0.5MG 3 ML AMPUL.NEB INHALE (02:56)
[2022-01-12 02:59] LABS: Strep A Nucleic Acid Negative (Negative)
[2022-01-12 03:00] VITALS: PULSE 83; RESP 18; O2SAT 98
[2022-01-12 03:12] LABS: B Type Natriuretic Peptide 14 pg/mL (<100); Troponin-I High Sensitivity 4.3 ng/L (<3.5-17.0)
[2022-01-12 03:49] VITALS: BP 136/76; PULSE 86; RESP 22
[2022-01-12 04:47] VITALS: RESP 16
== END 2022-01-12 04:48 | disposition home or self-care (01) ==
PROVIDERS: Physician Assistant; Emergency Provider Emergency Medicine
DX: B34.9 Viral infection, unspecified (principal); R06.02 Shortness of breath; J02.9 Acute pharyngitis, unspecified; R60.0 Localized edema; Z48.02 Encounter for removal of sutures; L03.116 Cellulitis of left lower limb; Z20.822 Contact with and (suspected) exposure to COVID-19
CPT/HCPCS: 36415; 71045; 80053; 83735; 83880; 84484; 85025; 85379; 87635; 87651; 93005; 94640; 99284

== ENCOUNTER 2022-05-07 17:39 | Emergency (ER) | payer OTHER, SELFPAY ==
--- NOTE | ~2022-05-07 | XR_ITS ---
EXAMINATION: XR CHEST CLINICAL INFORMATION: Cough. COMPARISON: Chest x-ray 01/12/2022 TECHNIQUE: 2 views of the chest were obtained. FINDINGS: No significant abnormality is noted involving the heart, lungs, mediastinum, bony thorax or soft tissues. Normal variant of azygos lobe. XR/XR chest 2V IMPRESSION: Unremarkable examination.
[2022-05-07 17:41] VITALS: BP 134/70; PULSE 93; RESP 16; TEMP 37.2; O2SAT 100; BMI 49.1
--- NOTE | 2022-05-07 17:46 | ED.GENADULT ---
HPI - General Adult General Chief complaint: Upper Respiratory Symptoms <KATE Edmondson - Last Filed: 05/07/22 17:46> Stated complaint: bronchitis? Chest pain, vein popped <KATE Edmondson - Last Filed: 05/07/22 17:46> Time Seen by Provider: 05/07/22 22:47 <KATE Edmondson - Last Filed: 05/07/22 17:46> Source: patient <KATE Mares - Last Filed: 05/08/22 00:43> Mode of arrival: ambulatory <KATE Mares - Last Filed: 05/08/22 00:43> Limitations: no limitations <KATE Mares - Last Filed: 05/08/22 00:43> History of Present Illness HPI narrative: This is a 56-year-old female history of obesity, asthma presenting to the emergency department for fatigue, malaise, productive cough of yellow/green sputum times a week, subjective fevers and chills, myalgias, chest tightness/discomfort, shortness of breath with cough however not at rest or with exertion x1 week. Patient denies any sick contacts. Patient tells me she just does not feel well. She tells me that her chest discomfort is throughout her entire chest, she tells me just feels tight. Denies any significant cardiac history. Patient also reports that her left lower extremity has a small varicose vein that appears to be bleeding, she tells me this is not the 1st time it has happened to her, it has required intervention in the past. Patient is not on blood thinners. Denies lower extremity edema, periods of sedentary lifestyle, smoking, hormone replacement therapy. And denies headache, vision changes, dizziness, weakness, changes in appetite or habits, abdominal pain. <KATE Mares - Last Filed: 05/08/22 00:43> Related Data Home medications: Previous Rx's Medication Instructions Recorded ciprofloxacin HCl 500 mg tablet 500 mg PO Q12H 7 days #14 tabs 08/04/20 (Cipro) ibuprofen 600 mg tablet 600 mg PO Q6H PRN pain #14 tabs 04/22/21 oxycodone 5 mg tablet 5 mg PO Q6H PRN pain #14 tabs 04/22/21 walker #1 ea 04/22/21 codeine 10 mg-guaifenesin 100 mg/5 10 ml PO Q6H PRN cough #237 mL 12/26/21 mL oral liquid dexamethasone 6 mg tablet 6 mg PO DAILY #6 tabs 12/26/21 cephalexin 500 mg tablet 500 mg PO Q6H 10 days #40 tabs 01/12/22 doxycycline hyclate 100 mg capsule 100 mg PO BID 10 days #20 caps 01/12/22 prednisone 20 mg tablet 40 mg PO DAILY 5 days #10 tabs 01/12/22 albuterol sulfate 90 mcg/actuation 2 inh inhalation Q4-6H PRN 05/07/22 breath activated powder inhaler shortness of breath or wheezing #1 ea doxycycline hyclate 100 mg capsule 100 mg PO BID 10 days #20 caps 05/07/22 prednisone 20 mg tablet 40 mg PO DAILY 5 days #10 tabs 05/07/22 <KATE Edmondson - Last Filed: 05/07/22 17:46> Allergies/adverse reactions: Allergies Allergy/AdvReac Type Severity Reaction Status Date / Time Seasonal Allergies Allergy Mild Sneezing Verified 05/07/22 17:41 <KATE Edmondson - Last Filed: 05/07/22 17:46> Review of Systems Review of Systems: Constitutional : No Weight loss, No Fever, No Chills, + Fatigue, + Malaise ENT/Mouth : No sore throat, + Rhinorrhea, + congestion Eyes: No Eye Pain, No Swelling, No Redness Cardiovascular : + Chest Pain, + SOB, No Dyspnea on Exertion, No Orthopnea, No Edema, No Palpitations Respiratory : + Cough, + Sputum, No Wheezing Gastrointestinal : No Nausea, No Vomiting, No Diarrhea, No Constipation, No abdominal Pain, No Hematochezia, No Melena Genitourinary : No Dysuria, No Urinary Frequency, No Hematuria, Musculoskeletal : No joint pain, No Myalgias, No Joint Swelling Skin : No Skin Lesions, No rash All other systems reviewed and are negative <KATE Mares Last Filed: 05/08/22 00:43> Yes all other systems are reviewed and are negative <KATE Mares Last Filed: 05/08/22 00:43> PMFSH Past Medical History Attestation statement: The following information was validated with the patient. <KATE Mares - Last Filed: 05/08/22 00:43> Source: old records reviewed and nursing notes reviewed <KATE Mares - Last Filed: 05/08/22 00:43> Medical History: Medical History Depression Varicose vein of leg <KATE Edmondson - Last Filed: 05/07/22 17:46> Social History Social History: Social History Alcohol intake: never Smoked in Last 30 Days: Yes Use of substances other than those prescribed or required for medical reasons: Yes Substance Use Type: Marijuana Substance Use Frequency: Weekly Advance Directives: No Advance Directives Information Provided: Yes <KATE Edmondson - Last Filed: 05/07/22 17:46> Physical Exam ED Vital Signs: Vital Signs - 24 hr 05/07/22 17:41 05/07/22 22:58 05/08/22 00:30 Temperature 98.9 F 97.7 F Pulse Rate 93 80 Respiratory Rate 16 20 Blood Pressure 134/70 105/67 Pulse Oximetry 100 100 97 Oxygen Delivery Method Room Air Room Air Room Air BMI result Body Mass Index 49.1 <KATE Edmondson - Last Filed: 05/07/22 17:46> Vital Signs - 24 hr 05/07/22 17:41 05/07/22 22:58 05/08/22 00:30 Temperature 98.9 F 97.7 F Pulse Rate 93 80 Respiratory Rate 16 20 Blood Pressure 134/70 105/67 Pulse Oximetry 100 100 97 Oxygen Delivery Method Room Air Room Air Room Air BMI result Body Mass Index 49.1 vss <KATE Mares - Last Filed: 05/08/22 00:43> Appearance: Alert.? Oriented X3.? No acute distress.? Head: Normocephalic, atraumatic, no step-offs or deformities Eyes: Pupils equal, round and reactive to light.? ENT: Pharynx normal.??External ears normal, TMs normal bilaterally and EAC's normal. No pain with manipulation of external ears bilaterally. No mastoid tenderness. Neck: Normal inspection.? Neck supple.? CVS: Normal heart rate and rhythm.? Pulses normal.? Respiratory: No respiratory distress.? Breath sounds normal.? Abdomen: Soft and nontender.? Skin: Skin warm and dry.? Normal skin color.? Normal skin turgor.? Extremities: No lower extremity edema.? No calf ttp. 5/5 strength to bilateral upper and lower extremities + small bleeding varicose vein to LLE Neuro: Oriented X 3.? No motor deficit.? No sensory deficit. CN 2-12 intact <KATE Mares Last Filed: 05/08/22 00:43> Course Course Course Narrative: RME performed by Telma Galvan PA-C. Patient is a 56 year old female presenting to the emergency department with multiple complaints. Patient states that she is congested and feels generally unwell. Patient states that she also has a varicose vein that has ruptured and may need sutures. Labs, CXR, and swabs ordered. Patient placed back in the waiting room pending room availability and results. <KATE Edmondson - Last Filed: 05/07/22 17:46> Reevaluation(s) Reevaluation #1: CBC with normocytic anemia. Appears to be around patient's baseline when compared to laboratory studies from 01/12/2022. Chemistry with no acute electrolyte abnormalities requiring intervention. Troponin 27.1 however repeat troponin 3.5 flat unlikely that this is ACS. Initial trop slightly high however not meeting delta criteria unlikley myocardial injury. Patient is COVID negative. Chest x-ray unremarkable. <KATE Mares Last Filed: 05/08/22 00:43> Time: 23:13 <KATE Mares Last Filed: 05/08/22 00:43> Reevaluation #2: Cauterization to vessel on left lower extremity was done with silver nitrate, vessel not bleeding. Will reevaluate patient at a later time. <KATE Mares Last Filed: 05/08/22 00:43> Time: 23:20 <KATE Mares Last Filed: 05/08/22 00:43> Reevaluation #3: Patient is feeling better. This case was discussed with my attending, reviewed her EKG and troponins, likely viral illness, on likely acute coronary syndrome. Educated patient on diagnosis and treatment plan, answered all question, patient verbalizes understanding. At this time patient will be discharged home, advised to return with new or worsening symptoms. Educated on worrisome signs and symptoms and when to return. At this time I feel comfortable discharge home. <KATE Mares - Last Filed: 05/08/22 00:43> Time: 23:45 <KATE Mares - Last Filed: 05/08/22 00:43> Medications Administered Discontinued Medications Generic Name Dose Route Start Last Admin Trade Name Freq PRN Reason Stop Dose Admin Albuterol Sulfate 4 puff 05/07/22 23:21 05/07/22 23:32 Albuterol Sulfate 90 Mcg 8 Gm Inhaler INHALE 05/07/22 23:22 4 puff ONCE ONE Administration Ketorolac Tromethamine 30 mg 05/07/22 23:12 05/07/22 23:23 Ketorolac Tromethamine 15 Mg/Ml Vial IM 05/07/22 23:13 30 mg ONCE ONE Administration Silver Nitrate 1 appl 05/07/22 23:09 05/08/22 00:33 Silver Nitrate Applicator Stick..Ea. TOPICAL 05/07/22 23:10 1 appl ONCE ONE Administration <KATE Edmondson - Last Filed: 05/07/22 17:46> Medications Administered Discontinued Medications Generic Name Dose Route Start Last Admin Trade Name Freq PRN Reason Stop Dose Admin Albuterol Sulfate 4 puff 05/07/22 23:21 05/07/22 23:32 Albuterol Sulfate 90 Mcg 8 Gm Inhaler INHALE 05/07/22 23:22 4 puff ONCE ONE Administration Ketorolac Tromethamine 30 mg 05/07/22 23:12 05/07/22 23:23 Ketorolac Tromethamine 15 Mg/Ml Vial IM 05/07/22 23:13 30 mg ONCE ONE Administration Silver Nitrate 1 appl 05/07/22 23:09 05/08/22 00:33 Silver Nitrate Applicator Stick..Ea. TOPICAL 05/07/22 23:10 1 appl ONCE ONE Administration <KATE Mares - Last Filed: 05/08/22 00:43> Medical Decision Making Medical Decision Making [facility] Narrative: 2300 56-year-old female presents with upper respiratory symptoms, chest discomfort, bleeding varicose vein x2 days Physical exam benign Likely viral illness. Unlikely PE, pneumonia. Likely bleeding varicose pain unlikely arterial or venous occlusion. No signs of threatened limb. To note patient without significant risk factors for PE I do not suspect that this is pulmonary embolism Plans basic labs, EKG, troponin, viral panel, x-ray. <KATE Mares - Last Filed: 05/08/22 00:43> Differential Diagnosis Differential Diagnoses: The differential diagnosis associated with the presentation includes <KATE Mares - Last Filed: 05/08/22 00:43> Likely viral illness. Unlikely PE, pneumonia. Likely bleeding varicose pain unlikely arterial or venous occlusion. No signs of threatened limb. <KATE Mares - Last Filed: 05/08/22 00:43> Admission/Observation Consideration of admission/observation: Escalation of care including admission/observation considered <KATE Mares - Last Filed: 05/08/22 00:43> Unlikely <KATE Mares - Last Filed: 05/08/22 00:43> Lab Data MDM Lab Attestation statement: I reviewed the patient's lab results. <KATE Mares - Last Filed: 05/08/22 00:43> Result Diagrams: 05/07/22 18:08 05/07/22 18:08 <KATE Edmondson - Last Filed: 05/07/22 17:46> Labs: Lab Results 05/07/22 05/07/22 05/07/22 Range/Units 18:08 18:08 18:08 WBC 5.7 (4.8-10.8) X10*3/uL RBC 4.10 L (4.20-5.50) X10*6/uL Hgb 11.3 L (12.0-16.0) g/dl Hct 36.4 L (37.0-47.0) % MCV 88.8 (80.0-98.0) fL MCH 27.6 (27.0-33.0) pg MCHC 31.0 (31.0-35.0) g/dl RDW 15.6 (11.0-16.0) % Plt Count 252 (160-400) X10*3/uL MPV 9.7 (9.4-12.3) fL Immature Gran % (Auto) 0.9 H (0.0-0.4) % Neut % (Auto) 62.1 (45-73) % Lymph % (Auto) 26.8 (20-40) % Montgomery % (Auto) 6.3 (2-11) % Eos % (Auto) 2.8 (0-4) % Baso % (Auto) 1.1 (0-2) % Lymph # (Auto) 1.5 (1.2-4.9) X10*3/uL Montgomery # (Auto) 0.4 (0.1-1.2) X10*3/uL Eos # (Auto) 0.2 (0.0-0.4) X10*3/uL Baso # (Auto) 0.1 (0.0-0.2) X10*3/uL Abs Immat Gran (auto) 0.05 H (0.00-0.03) X10*3/uL Absolute Neuts (auto) 3.5 (2.0-8.3) x10*3/uL Absolute Nucleated RBC 0.000 (0.0-0.012) X10*3/uL Nucleated RBC % (auto) 0.0 (0.0-0.2) /100WBC Sodium 142 (135-145) mmol/L Potassium 3.5 (3.3-5.1) mmol/L Chloride 104 (96-108) mmol/L Carbon Dioxide 30 H (22-29) mmol/L Anion Gap 12 (12-20) BUN 13 (9-16) mg/dL Creatinine 0.75 (0.5-1.4) mg/dL Estim Creat Clear Calc 115.9 Estimated GFR > 60 Random Glucose 102 (60-115) mg/dL Calcium 8.5 (8.4-10.2) mg/dL Magnesium 2.0 (1.6-2.6) mg/dL Total Bilirubin 0.3 (0.0-1.0) mg/dL AST 34 H (5-31) U/L ALT 41 H (0-31) U/L Alkaline Phosphatase 92 (39-117) U/L Troponin I High Sens 27.1 H (<3.5-17.0) ng/L B-Natriuretic Peptide (<100) pg/mL Total Protein 7.0 (6.5-8.0) g/dL Albumin 3.7 (3.5-5.0) g/dL COVID-19 (JANI) (Negative) COVID-19 Clin Com 05/07/22 05/07/22 05/07/22 Range/Units 18:08 18:08 20:19 WBC (4.8-10.8) X10*3/uL RBC (4.20-5.50) X10*6/uL Hgb (12.0-16.0) g/dl Hct (37.0-47.0) % MCV (80.0-98.0) fL MCH (27.0-33.0) pg MCHC (31.0-35.0) g/dl RDW (11.0-16.0) % Plt Count (160-400) X10*3/uL MPV (9.4-12.3) fL Immature Gran % (Auto) (0.0-0.4) % Neut % (Auto) (45-73) % Lymph % (Auto) (20-40) % Montgomery % (Auto) (2-11) % Eos % (Auto) (0-4) % Baso % (Auto) (0-2) % Lymph # (Auto) (1.2-4.9) X10*3/uL Montgomery # (Auto) (0.1-1.2) X10*3/uL Eos # (Auto) (0.0-0.4) X10*3/uL Baso # (Auto) (0.0-0.2) X10*3/uL Abs Immat Gran (auto) (0.00-0.03) X10*3/uL Absolute Neuts (auto) (2.0-8.3) x10*3/uL Absolute Nucleated RBC (0.0-0.012) X10*3/uL Nucleated RBC % (auto) (0.0-0.2) /100WBC Sodium (135-145) mmol/L Potassium (3.3-5.1) mmol/L Chloride (96-108) mmol/L Carbon Dioxide (22-29) mmol/L Anion Gap (12-20) BUN (9-16) mg/dL Creatinine (0.5-1.4) mg/dL Estim Creat Clear Calc Estimated GFR Random Glucose (60-115) mg/dL Calcium (8.4-10.2) mg/dL Magnesium (1.6-2.6) mg/dL Total Bilirubin (0.0-1.0) mg/dL AST (5-31) U/L ALT (0-31) U/L Alkaline Phosphatase (39-117) U/L Troponin I High Sens 3.5 D (<3.5-17.0) ng/L B-Natriuretic Peptide 21 (<100) pg/mL Total Protein (6.5-8.0) g/dL Albumin (3.5-5.0) g/dL COVID-19 (JANI) Negative (Negative) COVID-19 Clin Com See Note <KATE Edmondson - Last Filed: 05/07/22 17:46> Lab Results 05/07/22 05/07/22 05/07/22 Range/Units 18:08 18:08 18:08 WBC 5.7 (4.8-10.8) X10*3/uL RBC 4.10 L (4.20-5.50) X10*6/uL Hgb 11.3 L (12.0-16.0) g/dl Hct 36.4 L (37.0-47.0) % MCV 88.8 (80.0-98.0) fL MCH 27.6 (27.0-33.0) pg MCHC 31.0 (31.0-35.0) g/dl RDW 15.6 (11.0-16.0) % Plt Count 252 (160-400) X10*3/uL MPV 9.7 (9.4-12.3) fL Immature Gran % (Auto) 0.9 H (0.0-0.4) % Neut % (Auto) 62.1 (45-73) % Lymph % (Auto) 26.8 (20-40) % Montgomery % (Auto) 6.3 (2-11) % Eos % (Auto) 2.8 (0-4) % Baso % (Auto) 1.1 (0-2) % Lymph # (Auto) 1.5 (1.2-4.9) X10*3/uL Montgomery # (Auto) 0.4 (0.1-1.2) X10*3/uL Eos # (Auto) 0.2 (0.0-0.4) X10*3/uL Baso # (Auto) 0.1 (0.0-0.2) X10*3/uL Abs Immat Gran (auto) 0.05 H (0.00-0.03) X10*3/uL Absolute Neuts (auto) 3.5 (2.0-8.3) x10*3/uL Absolute Nucleated RBC 0.000 (0.0-0.012) X10*3/uL Nucleated RBC % (auto) 0.0 (0.0-0.2) /100WBC Sodium 142 (135-145) mmol/L Potassium 3.5 (3.3-5.1) mmol/L Chloride 104 (96-108) mmol/L Carbon Dioxide 30 H (22-29) mmol/L Anion Gap 12 (12-20) BUN 13 (9-16) mg/dL Creatinine 0.75 (0.5-1.4) mg/dL Estim Creat Clear Calc 115.9 Estimated GFR > 60 Random Glucose 102 (60-115) mg/dL Calcium 8.5 (8.4-10.2) mg/dL Magnesium 2.0 (1.6-2.6) mg/dL Total Bilirubin 0.3 (0.0-1.0) mg/dL AST 34 H (5-31) U/L ALT 41 H (0-31) U/L Alkaline Phosphatase 92 (39-117) U/L Troponin I High Sens 27.1 H (<3.5-17.0) ng/L B-Natriuretic Peptide (<100) pg/mL Total Protein 7.0 (6.5-8.0) g/dL Albumin 3.7 (3.5-5.0) g/dL COVID-19 (JANI) (Negative) COVID-19 Clin Com 05/07/22 05/07/22 05/07/22 Range/Units 18:08 18:08 20:19 WBC (4.8-10.8) X10*3/uL RBC (4.20-5.50) X10*6/uL Hgb (12.0-16.0) g/dl Hct (37.0-47.0) % MCV (80.0-98.0) fL MCH (27.0-33.0) pg MCHC (31.0-35.0) g/dl RDW (11.0-16.0) % Plt Count (160-400) X10*3/uL MPV (9.4-12.3) fL Immature Gran % (Auto) (0.0-0.4) % Neut % (Auto) (45-73) % Lymph % (Auto) (20-40) % Montgomery % (Auto) (2-11) % Eos % (Auto) (0-4) % Baso % (Auto) (0-2) % Lymph # (Auto) (1.2-4.9) X10*3/uL Montgomery # (Auto) (0.1-1.2) X10*3/uL Eos # (Auto) (0.0-0.4) X10*3/uL Baso # (Auto) (0.0-0.2) X10*3/uL Abs Immat Gran (auto) (0.00-0.03) X10*3/uL Absolute Neuts (auto) (2.0-8.3) x10*3/uL Absolute Nucleated RBC (0.0-0.012) X10*3/uL Nucleated RBC % (auto) (0.0-0.2) /100WBC Sodium (135-145) mmol/L Potassium (3.3-5.1) mmol/L Chloride (96-108) mmol/L Carbon Dioxide (22-29) mmol/L Anion Gap (12-20) BUN (9-16) mg/dL Creatinine (0.5-1.4) mg/dL Estim Creat Clear Calc Estimated GFR Random Glucose (60-115) mg/dL Calcium (8.4-10.2) mg/dL Magnesium (1.6-2.6) mg/dL Total Bilirubin (0.0-1.0) mg/dL AST (5-31) U/L ALT (0-31) U/L Alkaline Phosphatase (39-117) U/L Troponin I High Sens 3.5 D (<3.5-17.0) ng/L B-Natriuretic Peptide 21 (<100) pg/mL Total Protein (6.5-8.0) g/dL Albumin (3.5-5.0) g/dL COVID-19 (JANI) Negative (Negative) COVID-19 Clin Com See Note <KATE Mares - Last Filed: 05/08/22 00:43> Independent Interpretation I performed an independent interpretation of an: Plain X-Ray (XR/XR chest 2V IMPRESSION: Unremarkable examination.) <KATE Mares - Last Filed: 05/08/22 00:43> Radiology Impression Discussion of test interpretation with radiology: I have reviewed the radiologist's reading. <KATE Mares - Last Filed: 05/08/22 00:43> Core Measures AMI core measures followed: Yes <KATE Mares - Last Filed: 05/08/22 00:43> Measure exclusions: not indicated <KATE Mares - Last Filed: 05/08/22 00:43> Critical Care Time Critical Care Time Critical Care Time: No <KATE Mares - Last Filed: 05/08/22 00:43> Discharge Plan Discharge Clinical Impression: Bronchitis, Bleeding from varicose vein <KATE Edmondson - Last Filed: 05/07/22 17:46> Patient Disposition: Home, Self-Care <KATE Edmondson - Last Filed: 05/07/22 17:46> Instructions: Acute Bronchitis (ED) <KATE Edmondson Last Filed: 05/07/22 17:46> Additional Instructions: Take your medications as prescribed. If you were prescribed antibiotics today, it is important that you take your medication to their entirety, do not skip any doses, do not finish them early. Follow-up with your primary care provider this week. Return to the emergency department with new or worsening symptoms. Such as fevers, chills, chest pain, shortness of breath, nausea, vomiting, dizziness, headache, vision changes, lethargy In case of emergency call 911 <KATE Edmondson - Last Filed: 05/07/22 17:46> Prescriptions: New doxycycline hyclate 100 mg capsule 100 mg PO BID 10 Days Qty: 20 0RF albuterol sulfate 90 mcg/actuation aerosol powdr breath activated 2 inh inhalation Q4-6H PRN (Reason: shortness of breath or wheezing) Qty: 1 0RF prednisone 20 mg tablet 40 mg PO DAILY 5 Days Qty: 10 0RF No Action ciprofloxacin HCl [Cipro] 500 mg tablet 500 mg PO Q12H 7 Days Qty: 14 0RF codeine-guaifenesin 10-100 mg/5 mL liquid 10 ml PO Q6H PRN (Reason: cough) Qty: 237 0RF dexamethasone 6 mg tablet 6 mg PO DAILY Qty: 6 0RF doxycycline hyclate 100 mg capsule 100 mg PO BID 10 Days Qty: 20 0RF cephalexin 500 mg tablet 500 mg PO Q6H 10 Days Qty: 40 0RF prednisone 20 mg tablet 40 mg PO DAILY 5 Days Qty: 10 0RF oxycodone 5 mg tablet 5 mg PO Q6H PRN (Reason: pain) Qty: 14 0RF ibuprofen 600 mg tablet 600 mg PO Q6H PRN (Reason: pain) Qty: 14 0RF (DME) walker Misc See Rx Instructions .Route Qty: 1 0RF Rx Instructions: As directed <KATE Edmondson - Last Filed: 05/07/22 17:46> Referrals: Dung Caal MD [Primary Care Provider] - 2 days <KATE Edmondson - Last Filed: 05/07/22 17:46> Stand Alone Forms: Work/School Release <KATE Edmondson - Last Filed: 05/07/22 17:46> Interventions: ED Discharge Assessment Last Done: 05/08/22 00:36 <KATE Edmondson - Last Filed: 05/07/22 17:46> Discharge Date/Time: 05/08/22 00:37 <KATE Edmondson - Last Filed: 05/07/22 17:46>
--- NOTE | 2022-05-07 17:47 | ECG_ITS ---
Test Reason : SOB Blood Pressure : / mmHG Vent. Rate : 089 BPM Atrial Rate : 089 BPM P-R Int : 148 ms QRS Dur : 108 ms QT Int : 412 ms P-R-T Axes : 065 010 038 degrees QTc Int : 501 ms Normal sinus rhythm Incomplete right bundle branch block Prolonged QT Abnormal ECG When compared with ECG of 12-JAN-2022 03:03, No significant changes seen Referred By: Telma Galvan Electronically Signed By:HALEIGH WANG
[2022-05-07 18:14] LABS: MANUAL DIFF FLAG NO
[2022-05-07 18:30] LABS: Alanine Aminotransferase 41 U/L (0-31); Albumin Level 3.7 g/dL (3.5-5.0); Alkaline Phosphatase 92 U/L (39-117); Anion Gap 12 (12-20); Aspartate Amino Transferase 34 U/L (5-31); Bilirubin Total 0.3 mg/dL (0.0-1.0); Blood Urea Nitrogen 13 mg/dL (9-16); Calcium 8.5 mg/dL (8.4-10.2); Carbon Dioxide 30 mmol/L (22-29); Chloride 104 mmol/L (96-108); Creatinine Clr Calc Pharmacy 115.9; Estimated Glomerular Filt Rate > 60; Glucose Random 102 mg/dL (60-115); Potassium 3.5 mmol/L (3.3-5.1); Sodium 142 mmol/L (135-145)
[2022-05-07 18:31] LABS: COVID-19 Test Negative (Negative); IDNOW Serial# 16C4AD1C
[2022-05-07 18:36] LABS: B Type Natriuretic Peptide 21 pg/mL (<100)
[2022-05-07 18:37] LABS: Troponin-I High Sensitivity 27.1 ng/L (<3.5-17.0)
[2022-05-07 18:55] LABS: Basophils Absolute Auto 0.1 X10*3/uL (0.0-0.2); Basophils Percent Auto 1.1 % (0-2); Eosinophils Absolute Auto 0.2 X10*3/uL (0.0-0.4); Eosinophils Percent Auto 2.8 % (0-4); Hematocrit 36.4 % (37.0-47.0); Hemoglobin 11.3 g/dl (12.0-16.0); Imm Gran Abs Auto 0.05 X10*3/uL (0.00-0.03); Imm Gran Pct Auto 0.9 % (0.0-0.4); Lymphocytes Absolute Auto 1.5 X10*3/uL (1.2-4.9); Lymphocytes Percent Auto 26.8 % (20-40); Mean Corpuscular Hemoglobin 27.6 pg (27.0-33.0); Mean Corpuscular Volume 88.8 fL (80.0-98.0); Mean Platelet Volume 9.7 fL (9.4-12.3); Monocytes Absolute Auto 0.4 X10*3/uL (0.1-1.2); Monocytes Percent Auto 6.3 % (2-11); Neutrophils Absolute Auto 3.5 x10*3/uL (2.0-8.3); Neutrophils Percent Auto 62.1 % (45-73); Platelet Count 252 X10*3/uL (160-400); Red Cell Distribution Width 15.6 % (11.0-16.0); White Blood Count 5.7 X10*3/uL (4.8-10.8)
[2022-05-07 20:45] LABS: Troponin-I High Sensitivity 3.5 ng/L (<3.5-17.0)
--- NOTE | 2022-05-07 22:47 | ECG_ITS ---
Test Reason : REPEAT EKG Blood Pressure : / mmHG Vent. Rate : 080 BPM Atrial Rate : 080 BPM P-R Int : 150 ms QRS Dur : 106 ms QT Int : 426 ms P-R-T Axes : 070 017 038 degrees QTc Int : 491 ms Normal sinus rhythm with sinus arrhythmia Incomplete right bundle branch block Cannot rule out Anterior infarct , age undetermined ; could be related to body habitus and lead placement Abnormal ECG When compared with ECG of 07-MAY-2022 21:41, No significant change was found Referred By: Veronica Chow Electronically Signed By:HALEIGH WANG
[2022-05-07 22:58] VITALS: BP 105/67; PULSE 80; RESP 20; TEMP 36.5; O2SAT 100
[2022-05-07] MEDS: Ketorolac Tromethamine 15 MG/ML VIAL 30 MG IM (23:23)
[2022-05-07] MEDS: Albuterol Sulfate 90 MCG 8 GM INHALER 4 PUFF INHALE (23:32)
[2022-05-08 00:30] VITALS: PULSE 78; O2SAT 97
[2022-05-08] MEDS: Silver Nitrate Applicator STICK..EA. 1 APPL TOPICAL (00:33)
== END 2022-05-08 00:37 | disposition home or self-care (01) ==
PROVIDERS: Physician Assistant Medical; Emergency Provider Emergency Medicine Emergency Medical Services; PCP Radiology Vascular & Interventional Radiology
DX: J40 Bronchitis, not specified as acute or chronic (principal); R06.02 Shortness of breath; I83.90 Asymptomatic varicose veins of unspecified lower extremity; Z20.822 Contact with and (suspected) exposure to COVID-19; Z20.828 Contact with and (suspected) exposure to other viral communicable diseases; Z79.899 Other long term (current) drug therapy
CPT/HCPCS: 36415; 71046; 80053; 83735; 83880; 84484; 85025; 87635; 93005; 96372; 99284; 99285; J1885

== ENCOUNTER 2022-05-17 19:01 | Emergency (ER) | payer OTHER, SELFPAY ==
--- NOTE | ~2022-05-17 | XR_ITS ---
EXAMINATION: XR SACRUM AND COCCYX CLINICAL INFORMATION: Fall with acute sacral pain COMPARISON: None TECHNIQUE: 2 views of the sacrum and 2 views of the coccyx were obtained. FINDINGS: Degenerative changes are noted throughout the visualized spine. No acute fractures are seen. The sacrum and coccyx appear unremarkable. There is partial sacralization of L5 on the left. XR/XR sacrum coccyx min 2V IMPRESSION: No evidence of an acute injury
[2022-05-17 19:21] VITALS: BP 111/51; PULSE 85; RESP 15; TEMP 36.9; O2SAT 97
[2022-05-17 19:24] VITALS: BP 110/64; PULSE 102; O2SAT 98; BMI 49.9
--- NOTE | 2022-05-17 19:30 | PC.NURSE ---
pt a+o x4, vss. she reported getting L lower leg cauterized here 3 wks ago, today the scab fell off and her leg started bleeding profusely. she denies cramping, numbness, tingling. she also reported falling on her steps 2 days ago but not relating to her leg.
--- NOTE | 2022-05-17 20:00 | ED.GENADULT ---
HPI - General Adult General Chief complaint: Wound/Laceration Stated complaint: BLEEDING VERICOSE VEIN Time Seen by Provider: 05/17/22 19:12 Source: patient and EMS Mode of arrival: EMS Limitations: no limitations History of Present Illness HPI narrative: 56-year-old female presents with variceal bleed from her left lower extremity. Symptoms started today. She was seen 2 weeks ago for similar symptoms in which they perform silver nitrate cauterization. Today, scab started to come off and she started to bleed significantly. Pressure was applied prior to arrival and bleeding was controlled. Patient also notes that she fell a few days ago. It was mechanical nature. She did not hit her head or lose consciousness. There is no prodrome such as lightheadedness, chest pain or palpitations. She complains of tailbone pain. The pain is moderate to severe in nature. Worse with palpation and movement. No other significant injuries were noted Related Data Previous Rx's Medication Instructions Recorded ciprofloxacin HCl 500 mg tablet 500 mg PO Q12H 7 days #14 tabs 08/04/20 (Cipro) ibuprofen 600 mg tablet 600 mg PO Q6H PRN pain #14 tabs 04/22/21 oxycodone 5 mg tablet 5 mg PO Q6H PRN pain #14 tabs 04/22/21 walker #1 ea 04/22/21 codeine 10 mg-guaifenesin 100 mg/5 10 ml PO Q6H PRN cough #237 mL 12/26/21 mL oral liquid dexamethasone 6 mg tablet 6 mg PO DAILY #6 tabs 12/26/21 cephalexin 500 mg tablet 500 mg PO Q6H 10 days #40 tabs 01/12/22 doxycycline hyclate 100 mg capsule 100 mg PO BID 10 days #20 caps 01/12/22 prednisone 20 mg tablet 40 mg PO DAILY 5 days #10 tabs 01/12/22 albuterol sulfate 90 mcg/actuation 2 inh inhalation Q4-6H PRN 05/07/22 breath activated powder inhaler shortness of breath or wheezing #1 ea doxycycline hyclate 100 mg capsule 100 mg PO BID 10 days #20 caps 05/07/22 prednisone 20 mg tablet 40 mg PO DAILY 5 days #10 tabs 05/07/22 Allergies Allergy/AdvReac Type Severity Reaction Status Date / Time Seasonal Allergies Allergy Mild Sneezing Verified 05/17/22 19:57 [facility]LY [facility] Past Medical History Medical History Depression Varicose vein of leg Social History Social History Alcohol intake: never Substance Use Type: Marijuana Advance Directives: No Advance Directives Information Provided: Yes Physical Exam ED Vital Signs: Vital Signs - 24 hr 05/17/22 19:21 Temperature 98.4 F Pulse Rate 85 Respiratory Rate 15 Blood Pressure 111/51 L Pulse Oximetry 97 Oxygen Delivery Method Room Air BMI result Body Mass Index 49.9 GEN: Well developed, no acute distress, alert, oriented HEENT: Normocephalic, atraumatic, normal external ears, nose appears normal Eyes: Normal to appearance Neck: Supple, no lymphadenopathy Respiratory: Talks in complete sentences, no respiratory distress Extremities: No clubbing cyanosis or edema Neurologic: No focal neurologic deficits, cranial nerves 2-12 intact, gait normal Skin: No rash left lower extremity variceal bleeding with significant arterial bleeding under pressure. Scattered nonbleeding varices bilaterally Course Course Course Narrative: 56-year-old female presents with variceal bleeding on the left lower extremity. My evaluation, she had significant bleeding upon once pressure was released. I attempted to NS the ties the area with lidocaine with epinephrine. I attempted to use Vicryl verbal sutures in order to obtain hemostasis. As result, I placed 3-0 nylon sutures x3 and was fortunately able to achieve hemostasis at that time. I had also attempted electrocautery but was unsuccessful. A clean bandage will be placed on the patient. For the sacral coccygeal pain, will obtain an x-ray to rule out fracture. I will provide the patient with analgesics and re-evaluate the patient. Reevaluation(s) Reevaluation #1: I discussed results of the x-ray of her sacrum and coccyx. There is no definite fracture. She has received Dilaudid. There is no bleeding from the varices. She will be discharged to follow-up with her vascular surgeon. All questions were addressed and answered. Time: 20:51 Medications Administered Discontinued Medications Generic Name Dose Route Start Last Admin Trade Name Freq PRN Reason Stop Dose Admin Hydromorphone HCl 2 mg 05/17/22 19:59 05/17/22 20:19 Hydromorphone Hcl 2 Mg Tablet PO 05/17/22 20:00 2 mg ONCE ONE Administration Medical Decision Making Medical Decision Making MDM Narrative: Patient presents with a variceal bleed. Hemostasis has been achieved at this time. I initially attempted electrocautery unsuccessful. I then attempted to place absorbable sutures however, the needle was not long enough to achieve the appropriate pressure across the wound. Ultimately, 3 absorbable sutures were placed across the varices and hemostasis was achieved. Patient is also complaining sacrococcygeal pain. X-ray will be obtained. Patient will receive oral analgesics. Differential Diagnosis Differential Diagnoses: The differential diagnosis associated with the presentation includes (Bleeding, variceal bleeding, wound, contusion, fracture) Sacrococcygeal pain, variceal bleeding Admission/Observation Consideration of admission/observation: Escalation of care including admission/observation considered Independent Interpretation I performed an independent interpretation of an: Plain X-Ray (Sacrococcygeal no definite fracture) Independent Historian Clinical information obtained from an independent historian. History obtained from or confirmed by: EMS External Record Review Previous emergency department visit Tests considered The following testing was considered but not selected: Laboratory analysis for bleeding Prescription Management I considered prescription management with: Pain Medication Discharge Plan Discharge Clinical Impression: Varix of lower extremity, Pain in sacrum Patient Disposition: Home, Self-Care Instructions: Acute Low Back Pain (ED) Additional Instructions: Today were found to have a bleeding variceal vein on your left lower extremity. Three nonabsorbable sutures were placed in the area of the wound to achieve appropriate hemostasis. These will need to be removed in 7-10 days. I am recommending this be performed by our vascular doctor. Should a bleed in the interim, apply significant amount of pressure and if need be, back to the emergency department for re-evaluation. Prescriptions: No Action ciprofloxacin HCl [Cipro] 500 mg tablet 500 mg PO Q12H 7 Days Qty: 14 0RF codeine-guaifenesin 10-100 mg/5 mL liquid 10 ml PO Q6H PRN (Reason: cough) Qty: 237 0RF dexamethasone 6 mg tablet 6 mg PO DAILY Qty: 6 0RF doxycycline hyclate 100 mg capsule 100 mg PO BID 10 Days Qty: 20 0RF cephalexin 500 mg tablet 500 mg PO Q6H 10 Days Qty: 40 0RF prednisone 20 mg tablet 40 mg PO DAILY 5 Days Qty: 10 0RF oxycodone 5 mg tablet 5 mg PO Q6H PRN (Reason: pain) Qty: 14 0RF ibuprofen 600 mg tablet 600 mg PO Q6H PRN (Reason: pain) Qty: 14 0RF (DME) [place] See Rx Instructions .Route Qty: 1 0RF Rx Instructions: As directed doxycycline hyclate 100 mg capsule 100 mg PO BID 10 Days Qty: 20 0RF albuterol sulfate 90 mcg/actuation aerosol powdr breath activated 2 inh inhalation Q4-6H PRN (Reason: shortness of breath or wheezing) Qty: 1 0RF prednisone 20 mg tablet 40 mg PO DAILY 5 Days Qty: 10 0RF Referrals: Jeff Fontaine MD [Physician] - 1 week
[2022-05-17] MEDS: HYDROmorphone HCl 2 MG TABLET PO (20:19)
== END 2022-05-17 22:04 | disposition home or self-care (01) ==
PROVIDERS: Emergency Provider Emergency Medicine; PCP Student in an Organized Health Care Education/Training Program
DX: I83.892 Varicose veins of left lower extremity with other complications (principal); M53.3 Sacrococcygeal disorders, not elsewhere classified
CPT/HCPCS: 12001; 72220; 99283

== ENCOUNTER 2022-06-23 20:05 | Emergency (ER) | payer OTHER, SELFPAY ==
--- NOTE | ~2022-06-23 | XR_ITS ---
EXAMINATION: XR CHEST CLINICAL INFORMATION: Chest pain. COMPARISON: Chest radiograph 05/07/2022. TECHNIQUE: 2 views of the chest were obtained. FINDINGS: No significant abnormality is noted involving the heart, lungs, mediastinum, bony thorax or soft tissues. XR/XR chest 2V IMPRESSION: Unremarkable examination.
[2022-06-23 20:11] VITALS: BP 134/76; PULSE 82; RESP 19; TEMP 37.1; O2SAT 98; BMI 49.9
--- NOTE | 2022-06-23 20:11 | ECG_ITS ---
Test Reason : CHEST PAIN Blood Pressure : / mmHG Vent. Rate : 081 BPM Atrial Rate : 081 BPM P-R Int : 142 ms QRS Dur : 108 ms QT Int : 414 ms P-R-T Axes : 046 004 020 degrees QTc Int : 480 ms Normal sinus rhythm Incomplete right bundle branch block Prolonged QT Abnormal ECG When compared with ECG of 07-MAY-2022 22:54, No significant change was found Referred By: Gisele Jimenez Electronically Signed By:RUBIN SAENZ MD
--- NOTE | 2022-06-23 20:12 | ED_ITS ---
HPI - Chest Pain General Chief Complaint: Chest Pain <Gisele Jimenez NP - Last Filed: 06/23/22 20:44> Stated Complaint: heart attack? <Gisele Jimenez NP - Last Filed: 06/23/22 20:44> Time Seen by Provider: 06/23/22 23:37 <Gisele Jimenez NP - Last Filed: 06/23/22 20:44> Source: patient <Ovidio Lemus MD - Last Filed: 06/24/22 00:29> Mode of arrival: ambulatory <Ovidio Lemus MD - Last Filed: 06/24/22 00:29> Limitations: no limitations <Ovidio Lemus MD - Last Filed: 06/24/22 00:29> History of Present Illness HPI narrative: Patient morbidly obese with history of hypertension, diabetes, sleep apnea not using any CPAP machine been having chest pain off and on for this sometime last night patient at 22:00 noticed different type of more severe pain localized to mid chest feels like no airbag patient went to sleep woke up again still having some dull pain patient does have varicose vein but no leg pain or increasing swelling no fever no cough <Ovidio Lemus MD - Last Filed: 06/24/22 00:29> Related Data Home Medications: Previous Rx's Medication Instructions Recorded ciprofloxacin HCl 500 mg tablet 500 mg PO Q12H 7 days #14 tabs 08/04/20 (Cipro) ibuprofen 600 mg tablet 600 mg PO Q6H PRN pain #14 tabs 04/22/21 oxycodone 5 mg tablet 5 mg PO Q6H PRN pain #14 tabs 04/22/21 walker #1 ea 04/22/21 codeine 10 mg-guaifenesin 100 mg/5 10 ml PO Q6H PRN cough #237 mL 12/26/21 mL oral liquid dexamethasone 6 mg tablet 6 mg PO DAILY #6 tabs 12/26/21 cephalexin 500 mg tablet 500 mg PO Q6H 10 days #40 tabs 01/12/22 doxycycline hyclate 100 mg capsule 100 mg PO BID 10 days #20 caps 01/12/22 prednisone 20 mg tablet 40 mg PO DAILY 5 days #10 tabs 01/12/22 albuterol sulfate 90 mcg/actuation 2 inh inhalation Q4-6H PRN 05/07/22 breath activated powder inhaler shortness of breath or wheezing #1 ea doxycycline hyclate 100 mg capsule 100 mg PO BID 10 days #20 caps 05/07/22 prednisone 20 mg tablet 40 mg PO DAILY 5 days #10 tabs 05/07/22 <Gisele Jimenez NP - Last Filed: 06/23/22 20:44> Allergies/Adverse Reactions: Allergies Allergy/AdvReac Type Severity Reaction Status Date / Time Seasonal Allergies Allergy Mild Sneezing Verified 06/23/22 20:09 <Gisele Jimenez NP - Last Filed: 06/23/22 20:44> Review of Systems Review of Systems: Yes all other systems are reviewed and are negative <Ovidio Lemus MD - Last Filed: 06/24/22 00:29> PMFSH Past Medical History Medical History: Medical History Depression Varicose vein of leg <Gisele Jimenez NP - Last Filed: 06/23/22 20:44> Social History Social History: Social History Alcohol intake: current Alcohol intake frequency: holidays/special occasions only Alcohol type: hard liquor Smoked in Last 30 Days: No Use of substances other than those prescribed or required for medical reasons: Yes Substance Use Type: Marijuana Substance Use Frequency: Weekly Advance Directives: No Advance Directives Information Provided: No Patient : No <Gisele Jimenez NP - Last Filed: 06/23/22 20:44> Physical Exam Vital Signs: Vital Signs: Last Vital Signs Temp 98.1 F 06/23/22 23:26 Pulse 76 06/23/22 23:26 Resp 20 06/23/22 23:26 BP 145/68 H 06/23/22 23:26 Pulse Ox 100 06/23/22 23:26 O2 Del Method Room Air 06/23/22 23:26 BMI result Body Mass Index 49.9 <Gisele Jimenez NP - Last Filed: 06/23/22 20:44> Vital Signs: Last Vital Signs Temp 98.1 F 06/23/22 23:26 Pulse 76 06/23/22 23:26 Resp 20 06/23/22 23:26 BP 145/68 H 06/23/22 23:26 Pulse Ox 100 06/23/22 23:26 O2 Del Method Room Air 06/23/22 23:26 BMI result Body Mass Index 49.9 <Ovidio Lemus MD - Last Filed: 06/24/22 00:29> Appearance: Alert. Oriented X3. No acute distress. Obese Eyes: No pallor or icterus ENT: Pharynx normal. Oral Mucosa moist Neck: Normal inspection. Neck supple. CVS: Normal heart rate and rhythm. Pulses normal. No murmur no rub Respiratory: No respiratory distress. Equal air entry bilateral, no wheezing/rales/rhonchi Abdomen: Soft and nontender. Bowel sounds are present, no mass palpable, no CVA tenderness Skin: Skin warm and dry. Normal skin color. Normal skin turgor. Extremities: No lower extremity edema. No calf tenderness Neuro: Oriented X 3. No motor deficit. No sensory deficit.No cerebellar signs , cranial nerves II-XII intact <Ovidio Lemus MD - Last Filed: 06/24/22 00:29> Course Course Course Narrative: this is a rapid medical exam. deferred additional HPI, ROS, PE to primary provider. 56 yo female with history of asthma here with chest pain since last night, headache, shortness of breath with tightness, severe last night, inter mittent even at rest. Will obtain labs, EKG, CXR, viral testing. VSS <Gisele Jimenez NP - Last Filed: 06/23/22 20:44> Medical Decision Making Medical Decision Making MDM Narrative: Patient has atypical chest pain with anxiety initial workup is negative patient been to ER multiple times for same kind of pain which supposed to sleep apnea machine but she is not using it as patient advised to follow-up with a lung specialist <Ovidio Lemus MD - Last Filed: 06/24/22 00:29> Lab Data [facility] Lab Attestation statement: I reviewed the patient's lab results. <Ovidio Lemus MD - Last Filed: 06/24/22 00:29> Result Diagrams: 06/23/22 20:26 06/23/22 20:26 <Gisele Jimenez, HEAD BAKER - Last Filed: 06/23/22 20:44> Labs: Lab Results 06/23/22 06/23/22 06/23/22 Range/Units 20:26 20:26 20:26 WBC 6.5 (4.8-10.8) X10*3/uL RBC 3.97 L (4.20-5.50) X10*6/uL Hgb 10.8 L (12.0-16.0) g/dl Hct 35.0 L (37.0-47.0) % MCV 88.2 (80.0-98.0) fL MCH 27.2 (27.0-33.0) pg MCHC 30.9 L (31.0-35.0) g/dl RDW 15.4 (11.0-16.0) % Plt Count 226 (160-400) X10*3/uL MPV 9.7 (9.4-12.3) fL Immature Gran % (Auto) 0.3 (0.0-0.4) % Neut % (Auto) 62.0 (45-73) % Lymph % (Auto) 26.9 (20-40) % [place] % (Auto) 8.0 (2-11) % Eos % (Auto) 2.3 (0-4) % Baso % (Auto) 0.5 (0-2) % Lymph # (Auto) 1.8 (1.2-4.9) X10*3/uL [place] # (Auto) 0.5 (0.1-1.2) X10*3/uL Eos # (Auto) 0.2 (0.0-0.4) X10*3/uL Baso # (Auto) 0.0 (0.0-0.2) X10*3/uL Abs Immat Gran (auto) 0.02 (0.00-0.03) X10*3/uL Absolute Neuts (auto) 4.0 (2.0-8.3) x10*3/uL Absolute Nucleated RBC 0.000 (0.0-0.012) X10*3/uL Nucleated RBC % (auto) 0.0 (0.0-0.2) /100WBC PT (10.0-13.1) SEC INR (0.9-1.1) D-Dimer High Sensitivty NG/ML Sodium 139 (135-145) mmol/L Potassium 3.6 (3.3-5.1) mmol/L Chloride 104 (96-108) mmol/L Carbon Dioxide 29 (22-29) mmol/L Anion Gap 10 L (12-20) BUN 14 (9-16) mg/dL Creatinine 0.72 (0.5-1.4) mg/dL Estim Creat Clear Calc 122.1 Estimated GFR > 60 Random Glucose 101 (60-115) mg/dL Calcium 8.8 (8.4-10.2) mg/dL Total Bilirubin 0.3 (0.0-1.0) mg/dL Direct Bilirubin 0.1 (0.0-0.5) mg/dL AST 25 (5-31) U/L ALT 34 H (0-31) U/L Alkaline Phosphatase 98 (39-117) U/L Troponin I High Sens 2.7 (<3.5-17.0) ng/L Total Protein 7.1 (6.5-8.0) g/dL Albumin 3.6 (3.5-5.0) g/dL COVID-19 (JANI) (Negative) COVID-19 Clin Com 06/23/22 06/23/22 Range/Units 20:26 20:26 WBC (4.8-10.8) X10*3/uL RBC (4.20-5.50) X10*6/uL Hgb (12.0-16.0) g/dl Hct (37.0-47.0) % MCV (80.0-98.0) fL MCH (27.0-33.0) pg MCHC (31.0-35.0) g/dl RDW (11.0-16.0) % Plt Count (160-400) X10*3/uL MPV (9.4-12.3) fL Immature Gran % (Auto) (0.0-0.4) % Neut % (Auto) (45-73) % Lymph % (Auto) (20-40) % [place] % (Auto) (2-11) % Eos % (Auto) (0-4) % Baso % (Auto) (0-2) % Lymph # (Auto) (1.2-4.9) X10*3/uL [place] # (Auto) (0.1-1.2) X10*3/uL Eos # (Auto) (0.0-0.4) X10*3/uL Baso # (Auto) (0.0-0.2) X10*3/uL Abs Immat Gran (auto) (0.00-0.03) X10*3/uL Absolute Neuts (auto) (2.0-8.3) x10*3/uL Absolute Nucleated RBC (0.0-0.012) X10*3/uL Nucleated RBC % (auto) (0.0-0.2) /100WBC PT 11.5 (10.0-13.1) SEC INR 1.0 (0.9-1.1) D-Dimer High Sensitivty 170 NG/ML Sodium (135-145) mmol/L Potassium (3.3-5.1) mmol/L Chloride (96-108) mmol/L Carbon Dioxide (22-29) mmol/L Anion Gap (12-20) BUN (9-16) mg/dL Creatinine (0.5-1.4) mg/dL Estim Creat Clear Calc Estimated GFR Random Glucose (60-115) mg/dL Calcium (8.4-10.2) mg/dL Total Bilirubin (0.0-1.0) mg/dL Direct Bilirubin (0.0-0.5) mg/dL AST (5-31) U/L ALT (0-31) U/L Alkaline Phosphatase (39-117) U/L Troponin I High Sens (<3.5-17.0) ng/L Total Protein (6.5-8.0) g/dL Albumin (3.5-5.0) g/dL COVID-19 (JANI) Negative (Negative) COVID-19 Clin Com See Note <Gisele Jimenez, HEAD BAKER - Last Filed: 06/23/22 20:44> Lab Results 06/23/22 06/23/22 06/23/22 Range/Units 20:26 20:26 20:26 WBC 6.5 (4.8-10.8) X10*3/uL RBC 3.97 L (4.20-5.50) X10*6/uL Hgb 10.8 L (12.0-16.0) g/dl Hct 35.0 L (37.0-47.0) % MCV 88.2 (80.0-98.0) fL MCH 27.2 (27.0-33.0) pg MCHC 30.9 L (31.0-35.0) g/dl RDW 15.4 (11.0-16.0) % Plt Count 226 (160-400) X10*3/uL MPV 9.7 (9.4-12.3) fL Immature Gran % (Auto) 0.3 (0.0-0.4) % Neut % (Auto) 62.0 (45-73) % Lymph % (Auto) 26.9 (20-40) % [place] % (Auto) 8.0 (2-11) % Eos % (Auto) 2.3 (0-4) % Baso % (Auto) 0.5 (0-2) % Lymph # (Auto) 1.8 (1.2-4.9) X10*3/uL [place] # (Auto) 0.5 (0.1-1.2) X10*3/uL Eos # (Auto) 0.2 (0.0-0.4) X10*3/uL Baso # (Auto) 0.0 (0.0-0.2) X10*3/uL Abs Immat Gran (auto) 0.02 (0.00-0.03) X10*3/uL Absolute Neuts (auto) 4.0 (2.0-8.3) x10*3/uL Absolute Nucleated RBC 0.000 (0.0-0.012) X10*3/uL Nucleated RBC % (auto) 0.0 (0.0-0.2) /100WBC PT (10.0-13.1) SEC INR (0.9-1.1) D-Dimer High Sensitivty NG/ML Sodium 139 (135-145) mmol/L Potassium 3.6 (3.3-5.1) mmol/L Chloride 104 (96-108) mmol/L Carbon Dioxide 29 (22-29) mmol/L Anion Gap 10 L (12-20) BUN 14 (9-16) mg/dL Creatinine 0.72 (0.5-1.4) mg/dL Estim Creat Clear Calc 122.1 Estimated GFR > 60 Random Glucose 101 (60-115) mg/dL Calcium 8.8 (8.4-10.2) mg/dL Total Bilirubin 0.3 (0.0-1.0) mg/dL Direct Bilirubin 0.1 (0.0-0.5) mg/dL AST 25 (5-31) U/L ALT 34 H (0-31) U/L Alkaline Phosphatase 98 (39-117) U/L Troponin I High Sens 2.7 (<3.5-17.0) ng/L Total Protein 7.1 (6.5-8.0) g/dL Albumin 3.6 (3.5-5.0) g/dL COVID-19 (JANI) (Negative) COVID-19 Clin Com 06/23/22 06/23/22 Range/Units 20:26 20:26 WBC (4.8-10.8) X10*3/uL RBC (4.20-5.50) X10*6/uL Hgb (12.0-16.0) g/dl Hct (37.0-47.0) % MCV (80.0-98.0) fL MCH (27.0-33.0) pg MCHC (31.0-35.0) g/dl RDW (11.0-16.0) % Plt Count (160-400) X10*3/uL MPV (9.4-12.3) fL Immature Gran % (Auto) (0.0-0.4) % Neut % (Auto) (45-73) % Lymph % (Auto) (20-40) % [place] % (Auto) (2-11) % Eos % (Auto) (0-4) % Baso % (Auto) (0-2) % Lymph # (Auto) (1.2-4.9) X10*3/uL [place] # (Auto) (0.1-1.2) X10*3/uL Eos # (Auto) (0.0-0.4) X10*3/uL Baso # (Auto) (0.0-0.2) X10*3/uL Abs Immat Gran (auto) (0.00-0.03) X10*3/uL Absolute Neuts (auto) (2.0-8.3) x10*3/uL Absolute Nucleated RBC (0.0-0.012) X10*3/uL Nucleated RBC % (auto) (0.0-0.2) /100WBC PT 11.5 (10.0-13.1) SEC INR 1.0 (0.9-1.1) D-Dimer High Sensitivty 170 NG/ML Sodium (135-145) mmol/L Potassium (3.3-5.1) mmol/L Chloride (96-108) mmol/L Carbon Dioxide (22-29) mmol/L Anion Gap (12-20) BUN (9-16) mg/dL Creatinine (0.5-1.4) mg/dL Estim Creat Clear Calc Estimated GFR Random Glucose (60-115) mg/dL Calcium (8.4-10.2) mg/dL Total Bilirubin (0.0-1.0) mg/dL Direct Bilirubin (0.0-0.5) mg/dL AST (5-31) U/L ALT (0-31) U/L Alkaline Phosphatase (39-117) U/L Troponin I High Sens (<3.5-17.0) ng/L Total Protein (6.5-8.0) g/dL Albumin (3.5-5.0) g/dL COVID-19 (JANI) Negative (Negative) COVID-19 Clin Com See Note <Ovidio Lemus MD - Last Filed: 06/24/22 00:29> Independent Interpretation I performed an independent interpretation of an: EKG <Ovidio Lemus MD - Last Filed: 06/24/22 00:29> Interpretation: Normal sinus rhythm with heart rate 81 beats per minute incomplete RBBB no acute ST changes no acute ischemia no change from previous EKGs done in 05/06 <Ovidio Lemus MD - Last Filed: 06/24/22 00:29> Discharge Plan Discharge Clinical Impression: Chest pain, Sleep apnea, obstructive, Anxiety <Gisele Jimenez NP - Last Filed: 06/23/22 20:44> Patient Disposition: Home, Self-Care <Gisele Jimenez NP - Last Filed: 06/23/22 20:44> Instructions: Chest Pain (ED), Sleep Apnea (DC), Anxiety (ED) <Gisele Jimenez NP - Last Filed: 06/23/22 20:44> Additional Instructions: Follow with PCP for further evaluation A workup at this time is negative for any acute heart attack You have to follow-up with your PCP and lung specialist for further management during sleep studies for sleep apnea likely the cause for chest heaviness Take hydroxyzine for anxiety as prescribed by PCP <Gisele Jimenez NP - Last Filed: 06/23/22 20:44> Prescriptions: No Action ciprofloxacin HCl [Cipro] 500 mg tablet 500 mg PO Q12H 7 Days Qty: 14 0RF codeine-guaifenesin 10-100 mg/5 mL liquid 10 ml PO Q6H PRN (Reason: cough) Qty: 237 0RF dexamethasone 6 mg tablet 6 mg PO DAILY Qty: 6 0RF doxycycline hyclate 100 mg capsule 100 mg PO BID 10 Days Qty: 20 0RF cephalexin 500 mg tablet 500 mg PO Q6H 10 Days Qty: 40 0RF prednisone 20 mg tablet 40 mg PO DAILY 5 Days Qty: 10 0RF oxycodone 5 mg tablet 5 mg PO Q6H PRN (Reason: pain) Qty: 14 0RF ibuprofen 600 mg tablet 600 mg PO Q6H PRN (Reason: pain) Qty: 14 0RF (DME) walker Misc See Rx Instructions .Route Qty: 1 0RF Rx Instructions: As directed doxycycline hyclate 100 mg capsule 100 mg PO BID 10 Days Qty: 20 0RF albuterol sulfate 90 mcg/actuation aerosol powdr breath activated 2 inh inhalation Q4-6H PRN (Reason: shortness of breath or wheezing) Qty: 1 0RF prednisone 20 mg tablet 40 mg PO DAILY 5 Days Qty: 10 0RF <Gisele Jimenez NP - Last Filed: 06/23/22 20:44> Referrals: Nils Toure MD [Physician] - 1 week (Obstructive sleep apnea) <Gisele Jimenez NP - Last Filed: 06/23/22 20:44>
[2022-06-23 20:32] LABS: MANUAL DIFF FLAG NO
[2022-06-23 20:38] LABS: Prothrombin Time 11.5 SEC (10.0-13.1)
[2022-06-23 20:47] LABS: Alanine Aminotransferase 34 U/L (0-31); Albumin Level 3.6 g/dL (3.5-5.0); Alkaline Phosphatase 98 U/L (39-117); Anion Gap 10 (12-20); Aspartate Amino Transferase 25 U/L (5-31); Bilirubin Direct 0.1 mg/dL (0.0-0.5); Bilirubin Total 0.3 mg/dL (0.0-1.0); Blood Urea Nitrogen 14 mg/dL (9-16); COVID-19 Test Negative (Negative); Calcium 8.8 mg/dL (8.4-10.2); Carbon Dioxide 29 mmol/L (22-29); Chloride 104 mmol/L (96-108); Creatinine Clr Calc Pharmacy 122.1; Estimated Glomerular Filt Rate > 60; Glucose Random 101 mg/dL (60-115); IDNOW Serial# BCCEAD1C; Potassium 3.6 mmol/L (3.3-5.1); Sodium 139 mmol/L (135-145); Total Protein 7.1 g/dL (6.5-8.0)
[2022-06-23 20:50] LABS: Basophils Percent Auto 0.5 % (0-2); Eosinophils Absolute Auto 0.2 X10*3/uL (0.0-0.4); Eosinophils Percent Auto 2.3 % (0-4); Hemoglobin 10.8 g/dl (12.0-16.0); Imm Gran Abs Auto 0.02 X10*3/uL (0.00-0.03); Imm Gran Pct Auto 0.3 % (0.0-0.4); Lymphocytes Absolute Auto 1.8 X10*3/uL (1.2-4.9); Lymphocytes Percent Auto 26.9 % (20-40); Mean Corpuscular HGB Conc 30.9 g/dl (31.0-35.0); Mean Corpuscular Hemoglobin 27.2 pg (27.0-33.0); Mean Corpuscular Volume 88.2 fL (80.0-98.0); Mean Platelet Volume 9.7 fL (9.4-12.3); Monocytes Absolute Auto 0.5 X10*3/uL (0.1-1.2); Platelet Count 226 X10*3/uL (160-400); Red Blood Count 3.97 X10*6/uL (4.20-5.50); Red Cell Distribution Width 15.4 % (11.0-16.0); White Blood Count 6.5 X10*3/uL (4.8-10.8)
[2022-06-23 20:54] LABS: Troponin-I High Sensitivity 2.7 ng/L (<3.5-17.0)
[2022-06-23 23:26] VITALS: BP 145/68; PULSE 76; PULSE 77; RESP 20; TEMP 36.7; O2SAT 100
[2022-06-23 23:51] LABS: D Dimer High Sensitivity 170 NG/ML
[2022-06-24] MEDS: LORazepam 1 MG TABLET PO (00:40)
== END 2022-06-24 00:48 | disposition home or self-care (01) ==
PROVIDERS: Nurse Practitioner Family; Emergency Provider Internal Medicine; PCP Student in an Organized Health Care Education/Training Program
DX: R07.9 Chest pain, unspecified (principal); G47.33 Obstructive sleep apnea (adult) (pediatric); F41.9 Anxiety disorder, unspecified; I10 Essential (primary) hypertension; E11.9 Type 2 diabetes mellitus without complications; E66.01 Morbid (severe) obesity due to excess calories; Z68.42 Body mass index [BMI] 45.0-49.9, adult
CPT/HCPCS: 36415; 71046; 80048; 80076; 84484; 85025; 85379; 85610; 87635; 93005; 99283; 99285